=== PATIENT | female | born 2000 | race Caucasian/White ===

== ENCOUNTER 2024-03-05 01:22 | Inpatient (IN) | payer MEDICAID, SELFPAY ==
[2024-03-05] VITALS (11 sets, daily range): BP systolic 115–146; BP diastolic 81–99; PULSE 88–118; RESP 16–19; TEMP 36.5–36.7; O2SAT 97–100; BMI 22.8
--- NOTE | 2024-03-05 01:27 | EKG_ITS ---
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
--- NOTE | 2024-03-05 01:27 | PD.EDRME ---
Rapid Medical Screening Exam RME Arrival date/time: 03/05/24 01:22 23 year old female present to ED for c/o chest pain. I have greeted and performed a focused initial assessment of this patient. A comprehensive ED assessment and evaluation of the patient, analysis of all test results, and completion of the medical decision making process will be conducted by additional ED providers. Chief Complaint: Chest Pain Time Seen by Provider: 03/05/24 01:27
[2024-03-05] MEDS: ONDANSETRON ODT 4 MG TABRAP PO (02:14)
[2024-03-05 02:55] LABS: Basophils # (Auto) 0.1 Thou/mm3 (0.0-0.2); Basophils % (Auto) 1 % (0-2.5); Eosinophils # (Auto) 0.1 Thou/mm3 (0.0-0.5); Eosinophils % (Auto) 2 % (0-10); Hematocrit 43.8 % (36.0-46.0); Hemoglobin 14.8 g/dL (12.0-16.0); Immature Granulocytes % (Auto) 1 % (0-0); Immature Granulocytes Auto 0.04 Thou/mm3 (0.00-0.00); Lymphocytes # (Auto) 0.5 Thou/mm3 (1.0-4.8); Lymphocytes % (Auto) 9 % (10-50); Mean Corpuscular HGB Conc 33.8 g/dl (31.0-37.0); Mean Corpuscular Hemoglobin 36.3 pg (25.0-35.0); Mean Corpuscular Volume 107 fL (80-100); Monocytes # (Auto) 0.5 Thou/mm3 (0.0-0.8); Monocytes % (Auto) 8 % (0-12); Neutrophils # (Auto) 4.2 Thou/mm3 (1.8-7.7); Neutrophils % (Auto) 79 % (37-80); Nucleated Red Blood Cell % 0 /100 WBC (0); Platelet Count 272 Thou/mm3 (140-440); RDW Standard Deviation 51.7 fL (36.4-46.3); Red Blood Count 4.08 Miln/mm3 (4.00-5.20); White Blood Count 5.3 Thou/mm3 (3.6-11.0)
[2024-03-05 03:10] LABS: HCG,Qualitative Serum Negative
[2024-03-05 03:33] LABS: Alanine Aminotransferase 112 U/L (10-49); Albumin, Serum 4.2 gm/dL (3.5-5.0); Albumin/Globulin Ratio 1.3 (1.2-2.2); Alkaline Phosphatase 177 U/L (46-116); Anion Gap 11 (7-16); Aspartate Amino Transferase 316 U/L (0-34); BUN/Creatinine Ratio 12 Ratio (12-20); Bilirubin,Total 2.1 mg/dL (0.3-1.2); Blood Urea Nitrogen 7 mg/dL (9-23); Calcium 9.3 mg/dL (8.3-10.6); Calcium (Corrected) 9.3 mg/dL (8.5-10.1); Chloride 105 mMol/L (98-107); Creatinine (Component) 0.6 mg/dL (0.6-1.3); Estimated Creatinine Clearance 147.1 mL/min (>60); Globulin 3.3 gm/dL (2.3-3.5); Glucose 130 mg/dL (74-106); Lipase 2433 U/L (12-53); Magnesium 1.7 mg/dL (1.6-2.6); Osmolality,Calculated 281 (275-295); Potassium 4.1 mMol/L (3.4-5.1); Sodium 141 mMol/L (136-145); Total Protein 7.5 gm/dL (5.7-8.2); Troponin I < 0.002 ng/mL (0.0-0.045); eGFR > 60 See Note
--- NOTE | 2024-03-05 03:42 | XR_ITS ---
Examination: CT abdomen with intravenous contrast CT pelvis with intravenous contrast 2-D coronal reconstructions 2-D sagittal reconstructions Date and time of exam:March 05, 2024 1006 hours Comparison July 19, 2021 INDICATIONS: Epigastric pain nausea vomiting bilateral flank pain beginning 2 days ago, elevated lipase on laboratory examination today. CTDI: vol (mGy) 6.77 DLP: (mGycm) 396 Technique: Multiple axial sections of the abdomen and pelvis have been obtained. 64 slice high-resolution scanner used. 3 mm axial sections have been obtained, post intravenous injection 60 cc Isovue-370 2-D sagittal, coronal reconstructions obtained. Low dose protocols were performed. One or more of the following dose reduction techniques were used; automated exposure control, adjustment of the mA and/or KV according to patient size, use of iterative reconstruction technique. Findings: Hepatomegaly 16.5 cm with severe diffuse fatty infiltration throughout the liver No definite gallstones Severe pancreatitis, edema surrounding the pancreas free fluid extending into the abdomen No pseudocyst at this time Aorta is not enlarged No renal or ureteral calculi, no hydronephrosis No bowel obstruction Normal appendix No diverticulitis Anteverted uterus No pelvic mass Bladder intact Osseous structures intact IMPRESSION: Severe acute pancreatitis
[2024-03-05 04:15] LABS: Alcohol, Blood Medical 113.1 mg/dL (0-10.0)
[2024-03-05 05:08] LABS: Cardiac Risk Estimate 1.8 RATIO (3.7-5.6); Cholesterol 197 mg/dL (132-200); HDL Cholesterol 111 mg/dL (40-60); LDL Cholesterol,Calculated 68 mg/dL (0-130); Triglycerides 91 mg/dL (30-150)
--- NOTE | 2024-03-05 06:39 | XR_ITS ---
Examination: Abdomen sonogram, Limited Date and time of exam: March 05, 2024 0803 hours INDICATIONS: Right upper abdominal pain epigastric pain chest pain beginning this morning Technique: Real-time mars scale transabdominal sonographic images of the upper abdomen obtained. Findings: Normal gallbladder Normal common bile duct 0.4 cm Pancreatic head 3.2 cm, pancreatic duct 2.5 mm no stones Liver 16 cm fatty infiltration no focal liver lesions Normal hepatopedal portal venous flow Patent IVC IMPRESSION: Normal gallbladder Normal common bile duct Fatty liver
[2024-03-05] MEDS: SODIUM CHLORIDE 0.9% 1000 ML 1,000 ML 999 ML IV ×2 (10:02→11:42)
[2024-03-05] MEDS: MORPHINE SULF INJ 10 MG/ML VIAL 5 MG IVP (10:03)
[2024-03-05] MEDS: ONDANSETRON INJ 2 MG/ML INJ 2 ML 4 MG IV (10:03)
--- NOTE | 2024-03-05 10:06 | EDNOTE_ITS ---
ED Abdominal Pain RME/HPI General Chief Complaint: Chest Pain Stated complaint: chest, back pain, vomitting, sob Time seen by provider: 03/05/24 01:27 Arrival date/time: 03/05/24 01:22 RME / HPI RME / HPI narrative: 03/05/24 01:22 23 year old female present to ED for c/o chest pain. I have greeted and performed a focused initial assessment of this patient. A comprehensive ED assessment and evaluation of the patient, analysis of all test results, and completion of the medical decision making process will be conducted by additional ED providers. DR. KELLY MAIN ED EVALUATION: 23 year old female with no past medical history presents to the Emergency Department with complaint of epigastric abdominal pain onset yesterday. Pain is described as aching, burning, and rated mild to moderate in severity. She states she does drink alcohol frequently and smokes marijuana. Related Data Previous Rx's ?Medication ?Instructions ?Recorded ciprofloxacin HCl 500 mg tablet 500 mg PO BID #14 tabs 07/19/21 (Cipro) Allergies Allergy/AdvReac Type Severity Reaction Status Date / Time No Known Allergies Allergy Verified 07/19/21 09:26 Review of Systems Review of Systems Systems Reviewed: All systems reviewed, normal except as documented Narrative Review of Systems: GEN: No fever, no chills, no weight loss EYES: No discharge, no visual changes, no pain HEENT: No ear pain, no congestion, no sore throat PULM: No shortness of breath, no cough, no congestion CV: No chest pain, no dyspnea on exertion, no palpitations GI: No nausea, no vomiting, no diarrhea, + epigastric abdominal pain, no constipation : No frequency, no urgency and no dysuria MUSC/SKEL: No joint pain, no back pain SKIN: No rash PSYCH: No hallucinations, no depression HEME/LYMPH: No easy bleeding or bruising tendencies NEURO: No weakness, no headache Past Medical History Past Medical History GENITOURINARY: Positive Genitourinary Disorders (Frequent UTIs) Family History FAMILY HISTORY: Positive Family Cancer (mom and uncle have cancer) Social History SMOKING STATUS: Never smoker SUBSTANCE USE: marijuana ALCOHOL: Current ED Exam Narrative Physical exam: GENERAL APPEARANCE: alert and oriented x 4, well-developed, well-nourished, no acute distress VITALS: All vitals were reviewed and the pulse ox is 97% on room air, which is normal according to my interpretation. HEENT: Normocephalic, atraumatic; pupils equal, round, reactive to light; EOMI; mucous membranes pink, moist; oropharynx clear NECK: Supple LUNGS: CTABL; no wheezes, no rales, no rhonchi HEART: Regular rate, regular rhythm; normal S1, S2; no murmurs ABDOMEN: there is mild tenderness over the epigastrium on palpation; otherwise non distended; normal BS; no rebound; no masses, no organomegaly, no hernia BACK: no CVA tenderness EXTREMITIES: atraumatic; no edema NEUROLOGIC: awake; alert and oriented x4; cranial nerves II-XII grossly intact; no focal sensory or motor deficits PSYCHIATRIC: appropriate mood and affect SKIN: warm, dry, normal color; no rashes Course Quality Measures none Orders Category Date Time Status COVID-19 Screening Questionnaire NOW Care 03/05/24 09:[address] Screening NOW Care 03/05/24 03:42 Active Veterinary Livestock Inspector NOW Care 03/05/24 09:49 Active Decision to Admit X1 Care 03/05/24 09:49 Active EKG (ED ONLY) *Do not use* NOW Care 03/05/24 01:27 Completed IV [Insert IV] STAT Care 03/05/24 01:[address] abdomen pelvis w con Stat Exams 03/05/24 03:42 Completed EKG (ED Only) Stat Exams 03/05/24 01:27 Draft US abdomen limited Stat Exams 03/05/24 06:39 Completed Alcohol, Blood Medical Stat Lab 03/05/24 02:12 Completed CBC Stat Lab 03/05/24 02:12 Completed CMP [Comprehensive Metabolic Panel] Stat Lab 03/05/24 02:12 Completed Drug Screen,Urine Stat Lab 03/05/24 03:42 Ordered HCG,Qualitative Serum Stat Lab 03/05/24 02:12 Completed Lipase Stat Lab 03/05/24 02:12 Completed Lipid Panel Stat Lab 03/05/24 02:12 Completed Magnesium Stat Lab 03/05/24 02:12 Completed Troponin I Stat Lab 03/05/24 02:12 Completed Morphine Inj Med 03/05/24 09:40 Discontinued 5 mg IVP X1 ONE Ondansetron Inj [Zofran Inj] Med 03/05/24 09:40 Discontinued 4 mg IV X1 ONE Ondansetron Odt [Zofran Odt] Med 03/05/24 01:58 Discontinued 4 mg PO X1 ONE Ondansetron Odt [Zofran Odt] Med 03/05/24 01:58 Discontinued 4 mg PO X1 ONE Sodium Chloride 0.9% 1000 ml [Ns] 1,000 ml Med 03/05/24 01:58 Discontinued IV 999 mls/hr Sodium Chloride 0.9% 1000 ml [Ns] 1,000 ml Med 03/05/24 09:40 Discontinued IV 999 mls/hr Vital Signs Vital signs: Vital Signs Temperature 97.7 F 03/05/24 01:41 Pulse Rate 107 H 03/05/24 01:41 Respiratory Rate 16 03/05/24 01:41 Blood Pressure 115/84 03/05/24 01:41 Pulse Oximetry (%) 100 03/05/24 01:41 Oxygen Delivery Method Room Air 03/05/24 01:41 Abdominal Pain MDM MDM Narrative MDM Narrative:: I, Felecia Mccurdy am scribing for and in the presence of Dr. Kelly. Patient data External records reviewed:: [facility] previous records (Reviewed last ED visit dated 07/19/21, discharged with the following: Pyelonephritis.) Clinical information provided by:: patient Social determinants that could affect healthcare access:: substance use (drinks alcohol frequently and smokes marijuana) Patient has the following chronic illnesses:: Denies any PMHx, surgeries, daily medications, or known allergies. How is presenting disease/condition affected by chronic disease/condition?: no chronic disease Evaluation data The following diagnostics were reviewed and interpreted by me:: lab results, radiology exam(s) and EKG tracing(s) (sinus rhythm, rate 92, no STEMI) Lab and/or radiology exams considered but not ordered:: none Interpretation Summary: Procedure(s): US abdomen limited Accession Number(s): [id number] cc: Adolfo Claire MD; Antony Vela MD; Shalini Kelly MD~ Examination: Abdomen sonogram, Limited Date and time of exam: March 05, 2024 0803 hours INDICATIONS: Right upper abdominal pain epigastric pain chest pain beginning this morning Technique: Real-time mars scale transabdominal sonographic images of the upper abdomen obtained. Findings: Normal gallbladder Normal common bile duct 0.4 cm Pancreatic head 3.2 cm, pancreatic duct 2.5 mm no stones Liver 16 cm fatty infiltration no focal liver lesions Normal hepatopedal portal venous flow Patent IVC IMPRESSION: Normal gallbladder Normal common bile duct Fatty liver Dictated By: Antony Vela MD Procedure(s): CT abdomen pelvis w con Accession Number(s): [id number] cc: Adolfo Claire MD; Antony Vela MD; Kp Ordonez PA-C~ Examination: CT abdomen with intravenous contrast CT pelvis with intravenous contrast 2-D coronal reconstructions 2-D sagittal reconstructions Date and time of exam:March 05, 2024 1006 hours Comparison July 19, 2021 INDICATIONS: Epigastric pain nausea vomiting bilateral flank pain beginning 2 days ago, elevated lipase on laboratory examination today. CTDI: vol (mGy) 6.77 DLP: (mGycm) 396 Technique: Multiple axial sections of the abdomen and pelvis have been obtained. 64 slice high-resolution scanner used. 3 mm axial sections have been obtained, post intravenous injection 60 cc Isovue-370 2-D sagittal, coronal reconstructions obtained. Low dose protocols were performed. One or more of the following dose reduction techniques were used; automated exposure control, adjustment of the mA and/or KV according to patient size, use of iterative reconstruction technique. Findings: Hepatomegaly 16.5 cm with severe diffuse fatty infiltration throughout the liver No definite gallstones Severe pancreatitis, edema surrounding the pancreas free fluid extending into the abdomen No pseudocyst at this time Aorta is not enlarged No renal or ureteral calculi, no hydronephrosis No bowel obstruction Normal appendix No diverticulitis Anteverted uterus No pelvic mass Bladder intact Osseous structures intact IMPRESSION: Severe acute pancreatitis Dictated By: Antony Vela MD Medications / Prescriptions Medications or Prescriptions considered but not ordered:: none Medication administrations:: Medication Administration History Sodium Chloride (Ns) 1,000 mls @ 200 mls/hr IV .Q5H LINDSAY Stop: 04/04/24 10:23 Magnesium Sulfate (Magnesium Sulfate Ivpb) 4 gm in 50 mls @ 12.5 mls/hr IV X1 ONE Stop: 03/05/24 14:24 Last Admin: 03/05/24 11:38 Dose: 12.5 mls/hr Documented By: DO Lorazepam (Lorazepam 2 Mg/Ml Vial) 0.5 mg IVP Q4H PRN PRN Reason: CIWA SCORE(2-6) Stop: 03/10/24 10:22 Lorazepam (Lorazepam 2 Mg/Ml Vial) 1 mg IVP Q4H PRN PRN Reason: CIWA SCORE (7-11) Stop: 03/10/24 10:22 Lorazepam (Lorazepam 2 Mg/Ml Vial) 2 mg IVP Q4H PRN PRN Reason: CIWA SCORE (12-16) Stop: 03/10/24 10:22 Discontinued Medications Folic Acid (Folic Acid Inj 1 Mg/0.2 Ml) 1 mg IVP X1 ONE Stop: 03/05/24 10:26 Last Admin: 03/05/24 11:36 Dose: 1 mg Documented By: DO Sodium Chloride (Ns) 1,000 mls @ 999 mls/hr IV .Q1H1M ONE Stop: 03/05/24 02:58 Last Admin: 03/05/24 10:02 Dose: 999 mls/hr Documented By: DO Sodium Chloride (Ns) 1,000 mls @ 999 mls/hr IV .Q1H1M ONE Stop: 03/05/24 10:40 Last Admin: 03/05/24 11:42 Dose: 999 mls/hr Documented By: DO Morphine Sulfate (Morphine Sulf Inj 10 Mg/Ml Vial) 5 mg IVP X1 ONE Stop: 03/05/24 09:41 Last Admin: 03/05/24 10:03 Dose: 5 mg Documented By: DO Ondansetron HCl (Ondansetron Odt 4 Mg Tabrap) 4 mg PO X1 ONE; Protocol Stop: 03/05/24 01:59 Last Admin: 03/05/24 02:10 Dose: Not Given Documented By: NIKITA Non-Admin Reason: Discontinued Ondansetron HCl (Ondansetron Odt 4 Mg Tabrap) 4 mg PO X1 ONE; Protocol Stop: 03/05/24 01:59 Last Admin: 03/05/24 02:14 Dose: 4 mg Documented By: NIKITA Ondansetron HCl (Ondansetron Inj 2 Mg/Ml Inj 2 Ml) 4 mg IV X1 ONE Stop: 03/05/24 09:41 Last Admin: 03/05/24 10:03 Dose: 4 mg Documented By: Thiamine HCl (Thiamine Inj 100 Mg/Ml Vial 2 Ml) 100 mg IVP X1 ONE Stop: 03/05/24 10:26 Last Admin: 03/05/24 11:37 Dose: 100 mg Documented By: DO see above Consultations Consultation(s) initiated? (list below): Yes Consultation #1 (Physician, Specialty, Details): Discussed test HPI, PMHx, lab, radiology results and/or management with hospitalist. Will admit for further evaluation and management. Accepts patient for admission. Time: 11:30 Diagnosis Differential diagnosis abdominal pain: abdominal pain, pancreatitis and other (GERD, cannabinoid hyperemesis syndrome) Most likely diagnosis given after review of the tests above:: As noted below. Admission Indicated Admission indicated?: indicated Admission Request Was there a request for admission?: Yes Admission Attestation Admission request attestation: Discussed case with [] from Hospitalist service regarding admission. Discussed patients ED course, exam findings, labs, and radiology results. The Hospitalist [agrees,declines] to accept the patient for admission. Disposition Plan Disposition Plan: Admit
[2024-03-05] MEDS: FOLIC ACID INJ 1 MG/0.2 ML IVP (11:36)
[2024-03-05] MEDS: THIAMINE INJ 100 MG/ML VIAL 2 ML IVP (11:37)
[2024-03-05] MEDS: Magnesium Sulfate 4 GM Ivpb 4 GM/50 ML BAG IV (11:38)
--- NOTE | 2024-03-05 12:33 | ESHP_ITS ---
<Statement entered by Mirza Lopez MD - 03/05/24 16:06> This patient is a 23-year-old female with past medical history of alcohol use disorder presented to the ED with abdominal pain was found to have severe acute pancreatitis with elevated blood alcohol level. No pseudocyst. CT abdomen was consistent with acute pancreatitis. Lipase was elevated in the s. Ochoa score 0. Patient is started on IV fluid resuscitation with normal saline at 200 cc/h CIWA protocol as needed for alcohol withdrawal. guest services director were offered. Pain management is optimized as needed. Patient is currently not taking any home medications. Will likely start clear liquid diet if patient is able to tolerate well. All labs and orders were reviewed. I saw and examined the patient, and I agree with current management stated by Dr Davonte MD,PGY1. Plan of care was discussed with the attending physician and resident physician. Disclaimer: Despite multiple revisions, due to the dictation software being used, the document bellow may not be free of grammatical errors including phonetic/typographic errors. However, this does not deter from our commitment to providing health care in the patient's best interest in mind. Dr. Hernandez MD, PGY 2 Documentation for date of: 03/05/24 HPI History of Present Illness History of present illness: Estrella Cabrera is a 23 F with no significant PMH who presented to the emergency department for several bouts of nausea/vomiting as well as abdominal pain. Father is with patient at bedside. Patient states that yesterday night at around 11 PM she began having significant abdominal pain, nausea and vomiting. Patient states that the abdominal pain appears to be in the middle of her belly, and is also at her back. Patient had several bouts of nausea and vomiting with food content, no noticed red streaks or dark red emesis. Patient states that she had similar symptoms with a similar pain in lower intensity 2 weeks ago, but it spontaneously resolved. With father at bedside, patient does state that she drinks 1 pint of vodka per day for the last year/year and a half. Last drink was 8 PM on 03/04. Patient denies any recent fever, chest pain, chest pressure, changes in vision hearing, sensorineural changes, changes in urinary symptoms or bowel movements. On presentation in the emergency department, blood pressure was 115/84, pulse 107, respirations 16, afebrile at 97.7, saturating 100% on room air. CBC relatively normal, MCV elevated at 107. Electrolytes relatively normal, with glucose elevated 130. AST elevated 316, ALT elevated at 112. Alk Phos 177. Troponin negative. Lipase significantly elevated at 2433. In the emergency department patient was given. Morphine for pain, Zofran for nausea. Abdominal ultrasound shows normal gallbladder, normal CBD. Fatty liver. CT of abdomen pelvis shows hepatomegaly with 16.5 cm with severe diffuse fatty infiltration throughout liver. Severe pancreatitis present with edema surrounding the pancreas free fluid extending into the abdomen. No pseudocysts. On physical exam patient appears to be a chronically sick female. Patient is alert and oriented x 4. Cranial nerves II to XII intact, no sensorineural changes noted on exam. Abdomen is soft, mildly distended, tender to mild palpation. No fluid shift noted. No peritoneal signs present. Patient will be admitted for management of acute pancreatitis likely secondary to alcohol use. PMH: none PSH: none Meds: none Allergies: none Social: Drugs: none Alcohol: see above Smoking: none Exam Vital Signs Temp Pulse Resp BP Pulse Ox O2 Del Method 98.0 F 94 18 129/86 H 100 Room Air 03/05/24 10:58 03/05/24 12:18 03/05/24 12:18 03/05/24 12:18 03/05/24 12:18 03/05/24 12:18 Narrative Exam GENERAL: Patient appears to be moderate, responsive/cooperative. 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 Eyes open, symmetrical, & clear CARDIO: No chest pain on palpation. Heart RRR, no obvious murmurs PULM: No noted coughing/dyspnea. Lungs CTA B/L, no R/W/R GI: Abdomen is soft, mildly distended, tender to mild palpation. No fluid shift noted. No peritoneal signs present. 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 SKIN/MSK/EXT: No wounds/rashes/edema/amputations, no pain on palpation. Pedal pulses present B/L Results: Labs 03/06/24 05:22 03/06/24 05:22 Labs: Short CBC 03/05/24 Range/Units 02:12 WBC 5.3 (3.6-11.0) Thou/mm3 Hgb 14.8 (12.0-16.0) g/dL Hct 43.8 (36.0-46.0) % Plt Count 272 (140-440) Thou/mm3 BMP 03/05/24 02:12 Sodium 141 Potassium 4.1 Chloride 105 Carbon Dioxide 25.0 BUN 7 L Creatinine 0.6 Glucose 130 H Calcium 9.3 Cardiac Enzymes 03/05/24 Range/Units 02:12 Troponin I < 0.002 (0.0-0.045) ng/mL Liver Function 03/05/24 Range/Units 02:12 Total Bilirubin 2.1 H (0.3-1.2) mg/dL AST 316 H (0-34) U/L ALT 112 H (10-49) U/L Alkaline Phosphatase 177 H (46-116) U/L Albumin 4.2 (3.5-5.0) gm/dL Quality Measures Quality Measures none Medications Home Medications and Allergies Allergies Allergy/AdvReac Type Severity Reaction Status Date / Time No Known Allergies Allergy Verified 07/19/21 09:26 Visit Medications Sodium Chloride (Ns) 1,000 mls @ 200 mls/hr IV .Q5H LINDSAY Stop: 04/04/24 10:23 Magnesium Sulfate (Magnesium Sulfate Ivpb) 4 gm in 50 mls @ 12.5 mls/hr IV X1 ONE Stop: 03/05/24 14:24 Last Admin: 03/05/24 11:38 Dose: 12.5 mls/hr Ibuprofen (Ibuprofen Tab 600 Mg Tablet) 600 mg PO Q6HR PRN PRN Reason: PAIN OR FEVER > 101 Stop: 04/04/24 12:29 Lorazepam (Lorazepam 2 Mg/Ml Vial) 0.5 mg IVP Q4H PRN PRN Reason: CIWA SCORE(2-6) Stop: 03/10/24 10:22 Lorazepam (Lorazepam 2 Mg/Ml Vial) 1 mg IVP Q4H PRN PRN Reason: CIWA SCORE (7-11) Stop: 03/10/24 10:22 Lorazepam (Lorazepam 2 Mg/Ml Vial) 2 mg IVP Q4H PRN PRN Reason: CIWA SCORE (12-16) Stop: 03/10/24 10:22 Discontinued Medications Folic Acid (Folic Acid Inj 1 Mg/0.2 Ml) 1 mg IVP X1 ONE Stop: 03/05/24 10:26 Last Admin: 03/05/24 11:36 Dose: 1 mg Sodium Chloride (Ns) 1,000 mls @ 999 mls/hr IV .Q1H1M ONE Stop: 03/05/24 02:58 Last Admin: 03/05/24 10:02 Dose: 999 mls/hr Sodium Chloride (Ns) 1,000 mls @ 999 mls/hr IV .Q1H1M ONE Stop: 03/05/24 10:40 Last Admin: 03/05/24 11:42 Dose: 999 mls/hr Morphine Sulfate (Morphine Sulf Inj 10 Mg/Ml Vial) 5 mg IVP X1 ONE Stop: 03/05/24 09:41 Last Admin: 03/05/24 10:03 Dose: 5 mg Ondansetron HCl (Ondansetron Odt 4 Mg Tabrap) 4 mg PO X1 ONE; Protocol Stop: 03/05/24 01:59 Last Admin: 03/05/24 02:10 Dose: Not Given Ondansetron HCl (Ondansetron Odt 4 Mg Tabrap) 4 mg PO X1 ONE; Protocol Stop: 03/05/24 01:59 Last Admin: 03/05/24 02:14 Dose: 4 mg Ondansetron HCl (Ondansetron Inj 2 Mg/Ml Inj 2 Ml) 4 mg IV X1 ONE Stop: 03/05/24 09:41 Last Admin: 03/05/24 10:03 Dose: 4 mg Thiamine HCl (Thiamine Inj 100 Mg/Ml Vial 2 Ml) 100 mg IVP X1 ONE Stop: 03/05/24 10:26 Last Admin: 03/05/24 11:37 Dose: 100 mg Assessment & Plan Assessment Estrella Cabrera is a 23-year-old female with no past medical history who presents for nausea/vomiting, abdominal pain. Patient admitted for treatment of acute pancreatitis. # Acute pancreatitis secondary to alcohol use Patient has a history of chronic alcohol use, 1 pint of vodka for the last 1.5 years. Patient has had several bouts of nausea vomiting, abdominal pain prior to admission. AST 316, ALT 112. Lipase 2433. CT abdomen pelvis shows severe pancreatitis present with edema surrounding the pancreas and free fluid extending into the abdomen. No pseudocyst noted [place]'s Criteria: 0 = 1% predicted mortality - NaCl 0.9% at 200 mL/h - Acetaminophen, [place], Toradol for pain. - Zofran for nausea - We will continue to monitor labs, symptoms #Alcohol Abuse Patient attests to drinking 1 pint of vodka every day for the last 1.5 years AST 316, ALT 112 - [facility] protocol in place - Folic acid 1 mg daily - Thiamine 100 mg daily - Will continue to reassess, monitor labs -Contacting resources for cessation resources upon discharge #Hx of MDD (?) Per patient's medication record it appears the patient takes escitalopram at home. Last prescription refill the 09/29/23 Patient denies taking any medication at home # Elevated transaminases with elevated T. bili T. bili 2.1, AST 316, ALT 112 -Likely related to alcohol intake -Ultrasound liver was negative for stones in the gallbladder or CBD dilation -Continue [facility] protocol -Counseled on alcohol abstinence -Trend LFTs and avoiding hepatotoxic agents Diet: Sips of water, will advance diet to full liquid diet if patient tolerates GI: Pantoprazole DVT: SCDs, JC score 0 no chemoprophylaxis needed Reed: None Lines: Peripheral Dispo: Med-Tele Med Rec: Pending Code: Full Hospitalization for work-up, & management of acute pancreatitis secondary to alcohol use. Patient was seen, plan was discussed with attending Dr. Vicky Miller DO, PGY-1 Anesthesiology Attending Provider Attestation/Addendum I attest that I was physically present for the evaluation, physical examination, lab and imaging review of the patient with the residents. I discussed the case with the residents and agree with the findings and plans of care as documented above. Patient is a 23 years old female with alcohol abuse who presented to the ED with complaint of nausea/vomiting and abdominal pain. The pain is mostly present on upper abdomen and back. Father at bedside states that patient drinks 1 pint of vodka every day for the last year and a half. In the ED, she was found to have elevated liver enzymes, lipase was significantly elevated at 2433, CT abdomen/pelvis showed severe acute pancreatitis along with hepatomegaly with fatty infiltration. Calcium levels are noted to be within normal limits. Abdominal ultrasound did not show any gallstones. Decision made to admit the patient for management of acute pancreatitis, secondary to alcohol abuse and alcohol use disorder. Started patient on aggressive IV hydration, analgesics, antiemetics, CIWA protocol with thiamine and multivitamin supplement. Melissa Perry MD
[2024-03-05] MEDS: LORazepam 2 MG/ML VIAL 1 MG IVP ×3 (13:44→22:23)
--- NOTE | 2024-03-05 15:55 | PC.NURSE ---
pt asleep on gurni at this time. no distress noted. sister at bedside
--- NOTE | 2024-03-05 16:15 | PC.NURSE ---
report given to Maya on med/tele floor. pt to go to room [id number]
[2024-03-05 17:24] LABS: Amphetamine/Methamp Scrn,U Negative (Negative); Barbiturate Screen,Urine Negative (Negative); Benzodiazepines Screen,Urine Negative (Negative); Benzoylecgonine Screen, Ur Negative (Negative); Fentanyl Screen,Urine Negative (Negative); Opiate Screen,Urine Positive (Negative); THC Screen,Urine Negative (Negative)
[2024-03-05] MEDS: SODIUM CHLORIDE 0.9% 1000 ML 1,000 ML 200 ML IV ×2 (17:59→23:34)
--- NOTE | 2024-03-05 23:51 | PC.NURSE ---
MD Norbert Escoto made aware the HR went up to 170''s when pt got up to the toilet to void, at this time it's now on 128 Sinus Tachycardia, no new order made at this time, will continue to monitor.
[2024-03-06] VITALS (9 sets, daily range): BP systolic 125–138; BP diastolic 78–102; PULSE 115–168; RESP 15–20; TEMP 36.1–37.1; O2SAT 95–98; BMI 22.7
--- NOTE | 2024-03-06 00:01 | PC.NURSE ---
MD Toussaint called me back saying he did order EKG, RT Antonio made aware. EKG done shows Sinus tachycardia 118, MD Toussaint made aware. Pt CIWA score of 8 at this time, ordered Ativan IVP 1mg x1, will administer meds per ordered.
[2024-03-06] MEDS: KETOROLAC INJ 30 MG/ML VIAL IVP ×2 (00:08→21:04)
[2024-03-06] MEDS: LORazepam 2 MG/ML VIAL 1 MG IVP ×2 (00:25→04:53)
[2024-03-06] MEDS: SODIUM CHLORIDE 0.9% 1000 ML 1,000 ML 200 ML IV ×3 (04:53→23:50)
[2024-03-06 05:37] LABS: Basophils % (Auto) 0 % (0-2.5); Eosinophils # (Auto) 0.1 Thou/mm3 (0.0-0.5); Eosinophils % (Auto) 1 % (0-10); Hematocrit 39.9 % (36.0-46.0); Hemoglobin 13.2 g/dL (12.0-16.0); Immature Granulocytes % (Auto) 0 % (0-0); Immature Granulocytes Auto 0.03 Thou/mm3 (0.00-0.00); Lymphocytes # (Auto) 0.3 Thou/mm3 (1.0-4.8); Lymphocytes % (Auto) 4 % (10-50); Mean Corpuscular HGB Conc 33.1 g/dl (31.0-37.0); Mean Corpuscular Hemoglobin 35.9 pg (25.0-35.0); Mean Corpuscular Volume 108 fL (80-100); Monocytes # (Auto) 0.5 Thou/mm3 (0.0-0.8); Monocytes % (Auto) 6 % (0-12); Neutrophils # (Auto) 6.5 Thou/mm3 (1.8-7.7); Neutrophils % (Auto) 89 % (37-80); Nucleated Red Blood Cell % 0 /100 WBC (0); Platelet Count 120 Thou/mm3 (140-440); RDW Standard Deviation 52.5 fL (36.4-46.3); Red Blood Count 3.68 Miln/mm3 (4.00-5.20); White Blood Count 7.4 Thou/mm3 (3.6-11.0)
[2024-03-06 05:52] LABS: Glucose Estimated Average 82 mg/dL (80-131); Hemoglobin A1C 4.5 % Hgb (4.8-6.0)
[2024-03-06 06:32] LABS: Alanine Aminotransferase 54 U/L (10-49); Albumin, Serum 3.1 gm/dL (3.5-5.0); Albumin/Globulin Ratio 1.3 (1.2-2.2); Alkaline Phosphatase 125 U/L (46-116); Anion Gap 8 (7-16); Aspartate Amino Transferase 126 U/L (0-34); BUN/Creatinine Ratio 14 Ratio (12-20); Bilirubin,Total 2.2 mg/dL (0.3-1.2); Blood Urea Nitrogen 7 mg/dL (9-23); Calcium 7.9 mg/dL (8.3-10.6); Calcium (Corrected) 8.6 mg/dL (8.5-10.1); Carbon Dioxide 23.5 mMol/L (20.0-31.0); Chloride 104 mMol/L (98-107); Creatinine (Component) 0.5 mg/dL (0.6-1.3); Estimated Creatinine Clearance 176.5 mL/min (>60); Globulin 2.4 gm/dL (2.3-3.5); Glucose 83 mg/dL (74-106); Lipase 1561 U/L (12-53); Magnesium 1.9 mg/dL (1.6-2.6); Osmolality,Calculated 267 (275-295); Phosphorous 2.5 mg/dL (2.4-5.1); Potassium 5.2 mMol/L (3.4-5.1); Sodium 135 mMol/L (136-145); Total Protein 5.5 gm/dL (5.7-8.2); eGFR > 60 See Note
[2024-03-06] MEDS: LORazepam 0.5 MG TABLET 1 MG PO ×5 (08:40→20:26)
[2024-03-06] MEDS: FOLIC ACID 1 MG TABLET PO (08:40)
[2024-03-06] MEDS: THIAMINE 100 MG TABLET PO (08:40)
[2024-03-06] MEDS: SODIUM CHLORIDE 0.9% 1000 ML 1,000 ML 100 ML IV (10:45)
--- NOTE | 2024-03-06 11:00 | EKG_ITS ---
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
[2024-03-06] MEDS: Magnesium Sulfate 2 GM Ivpb 2 GM/50 ML BAG IV (11:25)
[2024-03-06 12:29] LABS: Collection Type, Urine Clean Catch
[2024-03-06 13:09] LABS: Bacteria,Urine Rare; Bilirubin,Urine 1+ (Negative); Blood,Urine Negative (Negative); Clarity,Urine Turbid (Clear/Hazy); Color,Urine Yellow (Lt Yel-Yel); Glucose, Urine Trace (Negative); Ketones,Urine 1+ (Negative); Leukocyte Esterase,Urine Positive (Negative); Nitrite,Urine Negative (Negative); Protein,Urine Trace (Neg - Trace); RBC,Urine 2 /hpf (0-3); Specific Gravity,Urine 1.023 (1.001-1.035); Squamous Epithelial Cell,Urine 40 /hpf (0-5); Transitional Epi Cells,Urine 1 /hpf (0-5); WBC,Urine 7 /hpf (0-5)
--- NOTE | 2024-03-06 14:00 | ESPR_ITS ---
<Statement entered by Mirza Lopez MD - 03/06/24 15:59> Patient was seen and examined at the bedside. Overnight, patient was tachycardic heart rate in 140s therefore CIWA protocol was adjusted by the night resident team. This morning, patient was seen and examined at the bedside. She reported that she feels better however has some palpitations but did not had a history of sinus tachycardia in the past. She endorsed burning sensation during urination. Rest of the vitals were stable. Labs revealed white count stable and hemoglobin 13. Platelets around 120. Chemistry panel showed potassium 5.2. Kidney functions remained stable. Diet was advanced to soft pur?ed which she tolerated well. Will continue with IV fluid at 200 cc/h given acute severe pancreatitis. Lipase is downtrending. Ordered TSH, T4 for the morning. Urinalysis was positive for UTI therefore ceftriaxone 1 g was started. Will follow-up on the urine cultures. Consider giving metoprolol succinate 25 mg x 1 in case of heart rate above 140s at night. Treating underlying infection and anticipating resolution in the next 24-48 hours. K-Phos and calcium carbonate given x 1 as repeat labs showed phosphorus 1.1 and corrected calcium 8.2. All labs and orders were reviewed. I saw and examined the patient, and I agree with current management stated by Dr Davonte DO,PGY1. Plan of care was discussed with the attending physician and resident physician. Disclaimer: Despite multiple revisions, due to the dictation software being used, the document bellow may not be free of grammatical errors including phonetic/typographic errors. However, this does not deter from our commitment to providing health care in the patient's best interest in mind. Dr. John MD, PGY 2 Documentation for date of: 03/06/24 Subjective Subjective Interval history: 03/06: No acute events overnight. Vital signs notable for tachycardia with heart rates in 120s to 130s. EKG shows sinus tachycardia BP stable at 130/90, respiratory rate 20, afebrile. CBC normal. CMP notable for potassium of 5.2. AST this a.m. 126 from 316, ALT 54 from 112. Patient states that she subjectively feels better, slightly gets lightheaded and feels palpitations walking to the restroom. But overall better. CIWA score of 8 in this a.m. Tolerated clear liquids, proceeding with pur?ed for lunch. Fluid balance +4 L, however unmeasured voids not accounted for. Patient does attest to several days of burning urination, has a history of recurrent UTIs. Urinalysis shows WBC 7, nitrite negative, leukoesterase positive. Treating with Rocephin 1 g daily. Will continue to follow throughout the day. Exam Vital Signs Temp Pulse Resp BP Pulse Ox O2 Del Method 97.3 F 120 H 15 125/98 H 97 Room Air 03/06/24 12:00 03/06/24 12:00 03/06/24 12:03/06/24 12:03/06/24 12:03/06/24 12:00 Narrative Exam GENERAL: Patient appears to be moderate, responsive/cooperative. 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 Eyes open, symmetrical, & clear CARDIO: No chest pain on palpation. Heart RRR, no obvious murmurs PULM: No noted coughing/dyspnea. Lungs CTA B/L, no R/W/R GI: Abdomen is soft, mildly distended, tender to mild palpation. No fluid shift noted. No peritoneal signs present. Bowel sounds present x 4 URO/HAND BOOKBINDER:: No further abnormalities noted. SKIN/MSK/EXT: No wounds/rashes/edema/amputations, no pain on palpation. Pedal pulses present B/L Objective Labs 03/06/24 05:22 03/06/24 13:46 Labs: Laboratory Results - last 24 hr 03/05/24 03/06/24 03/06/24 16:38 05:22 11:00 WBC 7.4 RBC 3.68 L Hgb 13.2 Hct 39.9 MCV 108 H MCH 35.9 H MCHC 33.1 RDW Std Deviation 52.5 H Plt Count 120 L D Neut % (Auto) 89 H Lymph % (Auto) 4 L [place] % (Auto) 6 Eos % (Auto) 1 Baso % (Auto) 0 Neut # (Auto) 6.5 Lymph # (Auto) 0.3 L [place] # (Auto) 0.5 Eos # (Auto) 0.1 Baso # (Auto) 0.0 Immature Gran # (Auto) 0.03 H Absolute Nucleated RBC 0.00 Immature Gran % 0 Nucleated RBC % 0 Sodium 135 L Potassium 5.2 H D Chloride 104 Carbon Dioxide 23.5 Anion Gap 8 BUN 7 L Creatinine 0.5 L Estim Creat Clear Calc 176.5 eGFR > 60 BUN/Creatinine Ratio [address] Glu mg/dL 82 Hemoglobin A1c 4.5 L Calculated Osmolality 267 L Calcium 7.9 L Corrected Calcium 8.6 Phosphorus 2.5 Magnesium 1.9 Total Bilirubin 2.2 H AST 126 H ALT 54 H Alkaline Phosphatase 125 H D Total Protein 5.5 L Albumin 3.1 L D Globulin 2.4 Albumin/Globulin Ratio 1.3 Lipase 1561 H* D Ur Collection Type Clean Catch Urine Color Yellow Urine Clarity Turbid A Urine pH 6.0 Ur Specific [place] 1.023 Urine Protein Trace Urine Glucose (UA) Trace Urine Ketones 1+ A Urine Blood Negative Urine Nitrite Negative Urine Bilirubin 1+ A Urine Urobilinogen (Auto) 6.0 Ur Leukocyte Esterase Positive Urine RBC 2 Urine WBC 7 H Ur Squamous Epith Cells 40 H Ur Transition Epith Cell 1 Urine Bacteria Rare Urine Opiates Screen Positive A Urine Fentanyl Screen Negative Ur Barbiturates Screen Negative U Amphetamin/Meth Scrn Negative U Benzodiazepines Scrn Negative U Cocaine Metab Screen Negative U Marijuana (THC) Screen Negative Quality Measures Quality Measures none Assessment & Plan Assessment Current Active Medications: Generic Name Dose Route Start Last Admin Trade Name Freq PRN Reason Stop Dose Admin Acetaminophen 650 mg 03/05/24 13:56 Acetaminophen 325 Mg Tablet PO 04/04/24 13:55 Q4HR PRN PAIN SCALE 1-3 (mild Hydrocodone Bitart/Acetaminophen 1 tab 03/05/24 13:56 Hydrocodone/Apap 5/325 Tablet PO 03/10/24 13:55 Q6HR PRN PAIN SCALE 4-6 (Moderate Folic Acid 1 mg 03/06/24 09:00 03/06/24 08:40 Folic Acid 1 Mg Tablet PO 04/05/24 08:59 1 mg QDAY LINDSAY Administration Sodium Chloride 1,000 mls @ 200 mls/hr 03/06/24 11:02 Ns IV 04/05/24 11:01 .Q5H LINDSAY Ketorolac Tromethamine 30 mg 03/05/24 13:56 03/06/24 00:08 Ketorolac Inj 30 Mg/Ml Vial IVP 03/10/24 13:55 30 mg Q6HR PRN Administration Severe Pain 7-10 Lorazepam 0.5 mg 03/06/24 08:00 Lorazepam 0.5 Mg Tablet PO 03/11/24 07:59 Q2HR PRN Ciwa-Ar Score 2-6 Lorazepam 1 mg 03/06/24 08:00 03/06/24 10:46 Lorazepam 0.5 Mg Tablet PO 03/11/24 07:59 1 mg Q2HR PRN Administration Ciwa-Ar score 7-11 Lorazepam 2 mg 03/06/24 07:46 Lorazepam 2 Mg/Ml Vial IV 03/11/24 07:45 Q2HR PRN CIWA SCORE 20-25 Lorazepam 2 mg 03/06/24 08:00 Lorazepam 0.5 Mg Tablet PO 03/11/24 07:59 Q2HR PRN Ciwa-Ar Score 12-15 Lorazepam 1 mg 03/06/24 11:02 Lorazepam 2 Mg/Ml Vial IV 03/11/24 07:45 Q2HR PRN CIWA SCORE 16-19 Thiamine HCl 100 mg 03/06/24 09:00 03/06/24 08:40 Thiamine 100 Mg Tablet PO 04/05/24 08:59 100 mg QDAY LINDSAY Administration Plan Estrella Cabrera is a 23-year-old female with no past medical history who presents for nausea/vomiting, abdominal pain. Patient admitted for treatment of acute pancreatitis. # Acute pancreatitis secondary to alcohol use Patient has a history of chronic alcohol use, 1 pint of vodka for the last 1.5 years. Patient has had several bouts of nausea vomiting, abdominal pain prior to admission. AST 316, ALT 112 on initial presentation Lipase 2433. CT abdomen pelvis shows severe pancreatitis present with edema surrounding the pancreas and free fluid extending into the abdomen. No pseudocyst noted Ochoa's Criteria: 0 = 1% predicted mortality - NaCl 0.9% at 200 mL/h - Acetaminophen, [place], Toradol for pain. - Zofran for nausea - We will continue to monitor labs, symptoms -Replating electrolytes as necessary -K-Phos and calcium carbonate repleted x 1 #Alcohol use disorder Patient attests to drinking 1 pint of vodka every day for the last 1.5 years AST 316, ALT 112 AST and ALT down trended to 126, 54 this a.m. 03/06: DEVANGWA in AM 8 - WA protocol in place - Folic acid 1 mg daily - Thiamine 100 mg daily - Will continue to reassess, monitor labs -Contacting resources for cessation resources upon discharge # Elevated transaminases with elevated T. bili T. bili 2.1, AST 316, ALT 112 AST and ALT down trended to 126, 54 this a.m. -Likely related to alcohol intake -Ultrasound liver was negative for stones in the gallbladder or CBD dilation -Continue [facility] protocol -Counseled on alcohol abstinence -Trend LFTs and avoiding hepatotoxic agents #Urinary Tract Infection Patient has a history of recurrent UTIs Patient attests to multiple days of burning on urination on reexamination today UA shows WBC 7, nitrate negative, leukoesterase positive, rare bacteria. - Treating with Rocephin 1 g daily - Urine cultures ordered, pending #Persistent sinus tachycardia Patient has persistently been tachycardic in 110s-120s since admission. Adequate pain control in place as per patient. -Consider giving metoprolol succinate 25 mg XL 1 time if heart rate remains persistently elevated at night -Treating underlying pancreatitis and UTI - Acetaminophen, [place], Toradol for pain. - TSH, T4 ordered for 1/5 AM, will follow up. #Hx of MDD (?) Per patient's medication record it appears the patient takes escitalopram at home. Last prescription refill the 09/29/23 Patient denies taking any medication at home Diet: Pur?ed diet, will advance to regular diet if tolerated. GI: Pantoprazole DVT: SCDs, JC score 0 no chemoprophylaxis needed Reed: None Lines: Peripheral Dispo: Med-Tele Med Rec: Pending Code: Full Hospitalization for work-up, & management of acute pancreatitis secondary to alcohol use. Patient was seen, plan was discussed with attending Dr. Vicky Miller, , PGY-1 Anesthesiology Attending Provider Attestation/Addendum I attest that I was physically present for the evaluation, physical examination, lab and imaging review of the patient with the residents. I discussed the case with the residents and agree with the findings and plans of care as documented above. At bedside today, patient states she is feeling better. She continues to have abdominal pain but managed with analgesics. She was able to tolerate her diet. Denies any nausea or vomiting. Has been receiving Ativan for alcohol withdrawal. Stated that she had burning micturition for multiple days. We will continue with IV hydration, pur?ed diet, analgesics, electrolyte repletion. UA was obtained which showed rare bacteria, we will start IV Rocephin and urine culture. Patient is also noted to have elevated heart rate going up to 140s, EKG showed sinus tachycardia without ST changes, with slowed down to 120s after fluid resuscitation. Plan to continue fluid resuscitation, if not improved, we will plan on starting beta-blockers. Melissa Perry MD
[2024-03-06 14:32] LABS: Albumin, Serum 2.9 gm/dL (3.5-5.0); Anion Gap 8 (7-16); BUN/Creatinine Ratio 13 Ratio (12-20); Blood Urea Nitrogen 5 mg/dL (9-23); Calcium 7.3 mg/dL (8.3-10.6); Calcium (Corrected) 8.2 mg/dL (8.5-10.1); Carbon Dioxide 22.5 mMol/L (20.0-31.0); Chloride 102 mMol/L (98-107); Creatinine (Component) 0.4 mg/dL (0.6-1.3); Estimated Creatinine Clearance 220.7 mL/min (>60); Glucose 109 mg/dL (74-106); Osmolality,Calculated 262 (275-295); Phosphorous 1.1 mg/dL (2.4-5.1); Potassium 3.6 mMol/L (3.4-5.1); Sodium 132 mMol/L (136-145); eGFR > 60 See Note
[2024-03-06] MEDS: cefTRIAXone/D5w 1gm IV premix 50 ML IV (15:27)
[2024-03-06] MEDS: METOPROLOL SUCCINATE XL 25 MG TABCR PO (17:51)
[2024-03-06] MEDS: CALCIUM CARBONATE 600 MG TABLET PO ×2 (17:53→21:04)
[2024-03-06] MEDS: POTASSIUM PHOS 22.5 MMOL in SODIUM CHLORIDE 0.9% 500 ML 500 ML 82.778 MMOL IV (17:54)
[2024-03-06 18:43] LABS: Alanine Aminotransferase 51 U/L (10-49); Albumin, Serum 3.2 gm/dL (3.5-5.0); Albumin/Globulin Ratio 1.3 (1.2-2.2); Alkaline Phosphatase 148 U/L (46-116); Anion Gap 6 (7-16); Aspartate Amino Transferase 132 U/L (0-34); BUN/Creatinine Ratio 10 Ratio (12-20); Blood Urea Nitrogen < 5 mg/dL (9-23); Calcium 7.4 mg/dL (8.3-10.6); Carbon Dioxide 24.6 mMol/L (20.0-31.0); Chloride 102 mMol/L (98-107); Creatinine (Component) 0.5 mg/dL (0.6-1.3); Estimated Creatinine Clearance 176.5 mL/min (>60); Globulin 2.4 gm/dL (2.3-3.5); Glucose 98 mg/dL (74-106); Osmolality,Calculated 263 (275-295); Phosphorous 1.6 mg/dL (2.4-5.1); Potassium 3.9 mMol/L (3.4-5.1); Sodium 133 mMol/L (136-145); Total Protein 5.6 gm/dL (5.7-8.2); eGFR > 60 See Note
[2024-03-06] MEDS: Magnesium Sulfate 1 gm Ivpb 1 GM/100 ML BAG IV (21:03)
[2024-03-06] MEDS: METOPROLOL TARTRATE 25 MG TABLET PO (21:04)
[2024-03-06] MEDS: NAPH,KPH MBDB 1 PACKET (1.5 GM) PO (21:04)
[2024-03-07] VITALS (9 sets, daily range): BP systolic 117–129; BP diastolic 75–87; PULSE 74–115; RESP 14–20; TEMP 36.3–37.1; O2SAT 93–97
[2024-03-07] MEDS: LORazepam 0.5 MG TABLET PO ×2 (00:31→04:35)
[2024-03-07] MEDS: KETOROLAC INJ 30 MG/ML VIAL IVP ×3 (04:44→19:33)
[2024-03-07] MEDS: SODIUM CHLORIDE 0.9% 1000 ML 1,000 ML 200 ML IV ×3 (06:00→18:07)
[2024-03-07 06:20] LABS: Basophils % (Auto) 1 % (0-2.5); Eosinophils # (Auto) 0.1 Thou/mm3 (0.0-0.5); Eosinophils % (Auto) 1 % (0-10); Hematocrit 35.8 % (36.0-46.0); Hemoglobin 11.9 g/dL (12.0-16.0); Immature Granulocytes % (Auto) 1 % (0-0); Immature Granulocytes Auto 0.06 Thou/mm3 (0.00-0.00); Lymphocytes # (Auto) 0.3 Thou/mm3 (1.0-4.8); Lymphocytes % (Auto) 5 % (10-50); Mean Corpuscular HGB Conc 33.2 g/dl (31.0-37.0); Mean Corpuscular Hemoglobin 35.7 pg (25.0-35.0); Mean Corpuscular Volume 108 fL (80-100); Monocytes # (Auto) 0.8 Thou/mm3 (0.0-0.8); Monocytes % (Auto) 13 % (0-12); Neutrophils # (Auto) 5.2 Thou/mm3 (1.8-7.7); Neutrophils % (Auto) 80 % (37-80); Nucleated Red Blood Cell % 0 /100 WBC (0); Platelet Count 125 Thou/mm3 (140-440); Red Blood Count 3.33 Miln/mm3 (4.00-5.20); White Blood Count 6.5 Thou/mm3 (3.6-11.0)
[2024-03-07 06:49] LABS: Alanine Aminotransferase 35 U/L (10-49); Albumin, Serum 2.7 gm/dL (3.5-5.0); Albumin/Globulin Ratio 1.2 (1.2-2.2); Alkaline Phosphatase 116 U/L (46-116); Anion Gap 8 (7-16); Aspartate Amino Transferase 92 U/L (0-34); BUN/Creatinine Ratio 17 Ratio (12-20); Bilirubin,Total 1.8 mg/dL (0.3-1.2); Blood Urea Nitrogen < 5 mg/dL (9-23); Calcium 7.1 mg/dL (8.3-10.6); Calcium (Corrected) 8.1 mg/dL (8.5-10.1); Carbon Dioxide 21.5 mMol/L (20.0-31.0); Chloride 109 mMol/L (98-107); Creatinine (Component) 0.3 mg/dL (0.6-1.3); Estimated Creatinine Clearance 294.2 mL/min (>60); Free T4 (Free Thyroxine) 0.87 ng/dL (0.89-1.76); Globulin 2.2 gm/dL (2.3-3.5); Glucose 86 mg/dL (74-106); Magnesium 2.2 mg/dL (1.6-2.6); Osmolality,Calculated 271 (275-295); Phosphorous 1.9 mg/dL (2.4-5.1); Potassium 3.9 mMol/L (3.4-5.1); Sodium 138 mMol/L (136-145); Thyroid Stimulating Hormone 1.46 uIU/mL (0.55-4.78); Total Protein 4.9 gm/dL (5.7-8.2); eGFR > 60 See Note
[2024-03-07] MEDS: cefTRIAXone/D5w 1gm IV premix 50 ML IV (09:08)
[2024-03-07] MEDS: METOPROLOL TARTRATE 25 MG TABLET PO ×2 (09:08→21:24)
[2024-03-07] MEDS: FOLIC ACID 1 MG TABLET PO (09:09)
[2024-03-07] MEDS: NAPH,KPH MBDB 1 PACKET (1.5 GM) PO ×2 (09:09→21:23)
[2024-03-07] MEDS: THIAMINE 100 MG TABLET PO (09:09)
[2024-03-07] MEDS: LORazepam 0.5 MG TABLET 1 MG PO ×3 (09:15→21:23)
[2024-03-07] MEDS: HYDROcodone/APAP 5/325 TABLET 1 TAB PO (09:23)
[2024-03-07] MEDS: POT PHOS 15 mMol in NS 250 ML 15 MMOL/250 ML BAG 62.5 MMOL IV (09:50)
--- NOTE | 2024-03-07 13:28 | ESPR_ITS ---
Documentation for date of: 03/07/24 Subjective Subjective Interval history: No overnight events. Patient seen and examined at bedside. Patient reports feeling well, complains of mild abdominal pain improved from before. Notes diarrhea. Denies chest pain, shortness of breath, nausea or vomiting. Patient received Ativan throughout the night due to elevated CIWA score. Continue IV fluids, allow diet as tolerated, continue CIWA protocol. Exam Vital Signs Temp Pulse Resp BP Pulse Ox O2 Del Method 98.8 F 84 14 129/78 96 Room Air 03/07/24 12:00 03/07/24 12:00 03/07/24 12:00 03/07/24 12:00 03/07/24 12:00 03/07/24 12:00 Narrative Exam PE: Gen: Well-developed and well-nourished. HEENT: NCAT, PERRLA, EOMI, MMM, anicteric conjunctivae. CVS: normal S1 and S2. RRR. No M/R/G. Resp: CTA B/L. No rhonchi, rales, crackles or wheezing. Abd: Diffuse mild abdominal tenderness. MSK: Good ROM in BUE & BLE. No edema or rash. Neuro: CN II-XII grossly intact. Strength 5/5 in BUE & BLE. Alert and oriented x3. Psych: appropriate mood and affect. Objective Labs 03/07/24 06:05 03/07/24 06:05 Labs: Laboratory Results - last 24 hr 03/06/24 03/06/24 03/07/24 13:46 18:08 06:05 WBC 6.5 RBC 3.33 L Hgb 11.9 L Hct 35.8 L MCV 108 H MCH 35.7 H MCHC 33.2 RDW Std Deviation 52.0 H Plt Count 125 L Neut % (Auto) 80 Lymph % (Auto) 5 L [place] % (Auto) 13 H Eos % (Auto) 1 Baso % (Auto) 1 Neut # (Auto) 5.2 Lymph # (Auto) 0.3 L [place] # (Auto) 0.8 Eos # (Auto) 0.1 Baso # (Auto) 0.0 Immature Gran # (Auto) 0.06 H Absolute Nucleated RBC 0.00 Immature Gran % 1 H Nucleated RBC % 0 Sodium 132 L 133 L 138 Potassium 3.6 D 3.9 3.9 Chloride 102 102 109 H Carbon Dioxide 22.5 24.6 21.5 Anion Gap 8 6 L 8 BUN 5 L < 5 L < 5 L Creatinine 0.4 L 0.5 L 0.3 L Estim Creat Clear Calc 220.7 176.5 294.2 eGFR > 60 > 60 > 60 BUN/Creatinine Ratio 13 10 L 17 Glucose 109 H 98 86 Calculated Osmolality 262 L 263 L 271 L Calcium 7.3 L 7.4 L 7.1 L Corrected Calcium 8.2 L 8.0 L 8.1 L Phosphorus 1.1 L 1.6 L 1.9 L Magnesium 2.2 Total Bilirubin 2.0 H 1.8 H AST 132 H 92 H ALT 51 H 35 Alkaline Phosphatase 148 H D 116 D Total Protein 5.6 L 4.9 L Albumin 2.9 L 3.2 L 2.7 L D Globulin 2.4 2.2 L Albumin/Globulin Ratio 1.3 1.2 TSH 1.46 Free T4 0.87 L Quality Measures Quality Measures none Assessment & Plan Assessment Current Active Medications: Generic Name Dose Route Start Last Admin Trade Name Freq PRN Reason Stop Dose Admin Acetaminophen 650 mg 03/05/24 13:56 Acetaminophen 325 Mg Tablet PO 04/04/24 13:55 Q4HR PRN PAIN SCALE 1-3 (mild Hydrocodone Bitart/Acetaminophen 1 tab 03/05/24 13:56 03/07/24 09:23 Hydrocodone/Apap 5/325 Tablet PO 03/10/24 13:55 1 tab Q6HR PRN Administration PAIN SCALE 4-6 (Moderate Folic Acid 1 mg 03/06/24 09:00 03/07/24 09:09 Folic Acid 1 Mg Tablet PO 04/05/24 08:59 1 mg QDAY LINDSAY Administration Sodium Chloride 1,000 mls @ 200 mls/hr 03/06/24 11:02 03/07/24 13:23 Ns IV 04/05/24 11:01 200 mls/hr .Q5H LINDSAY Administration Ceftriaxone Sodium/Dextrose 50 mls @ 100 mls/hr 03/06/24 14:31 03/07/24 09:08 Rocephin/D5w 1gm Iv Premix IV 03/13/24 14:30 100 mls/hr QDAY LINDSAY Administration Ketorolac Tromethamine 30 mg 03/05/24 13:56 03/07/24 13:24 Ketorolac Inj 30 Mg/Ml Vial IVP 03/10/24 13:55 30 mg Q6HR PRN Administration Severe Pain 7-10 Lorazepam 0.5 mg 03/06/24 08:00 03/07/24 04:35 Lorazepam 0.5 Mg Tablet PO 03/11/24 07:59 0.5 mg Q2HR PRN Administration Ciwa-Ar Score 2-6 Lorazepam 1 mg 03/06/24 08:00 03/07/24 13:24 Lorazepam 0.5 Mg Tablet PO 03/11/24 07:59 1 mg Q2HR PRN Administration Ciwa-Ar score 7-11 Lorazepam 2 mg 03/06/24 07:46 Lorazepam 2 Mg/Ml Vial IV 03/11/24 07:45 Q2HR PRN CIWA SCORE 20-25 Lorazepam 2 mg 03/06/24 08:00 Lorazepam 0.5 Mg Tablet PO 03/11/24 07:59 Q2HR PRN Ciwa-Ar Score 12-15 Lorazepam 1 mg 03/06/24 11:02 Lorazepam 2 Mg/Ml Vial IV 03/11/24 07:45 Q2HR PRN CIWA SCORE 16-19 Metoprolol Tartrate 25 mg 03/06/24 21:00 03/07/24 09:08 Metoprolol Tartrate 25 Mg Tablet PO 04/05/24 20:59 25 mg BID LINDSAY Administration Potassium Phos/Sodium Phos 1 packet 03/06/24 21:00 03/07/24 09:09 [place],[facility] Mbdb 1 Packet (1.5 Gm) PO 04/05/24 20:59 1 packet BID LINDSAY Administration Thiamine HCl 100 mg 03/06/24 09:00 03/07/24 09:09 Thiamine 100 Mg Tablet PO 04/05/24 08:59 100 mg QDAY LINDSAY Administration Plan Estrella Cabrera is a 23-year-old female with no past medical history who presents for nausea/vomiting, abdominal pain. Patient admitted for treatment of acute pancreatitis. # Acute pancreatitis secondary to alcohol use Patient has a history of chronic alcohol use, 1 pint of vodka for the last 1.5 years. Patient has had several bouts of nausea vomiting, abdominal pain prior to admission. AST 316, ALT 112 on initial presentation Lipase 2433. CT abdomen pelvis shows severe pancreatitis present with edema surrounding the pancreas and free fluid extending into the abdomen. No pseudocyst noted Ochoa's Criteria: 0 = 1% predicted mortality Patient eating pur?ed diet, no nausea vomiting, but has poor appetite. - NaCl 0.9% at 200 mL/h - Acetaminophen, [place], Toradol for pain. - Zofran for nausea - We will continue to monitor labs, symptoms - Replating electrolytes as necessary #Alcohol use disorder Patient attests to drinking 1 pint of vodka every day for the last 1.5 years AST 316, ALT 112 AST and ALT down trended to 126, 54 this a.m. 03/06: CIWA in AM 8 - CIWA protocol in place - Folic acid 1 mg daily - Thiamine 100 mg daily - Will continue to reassess, monitor labs - Contacting resources for cessation resources upon discharge # Elevated transaminases with elevated T. bili T. bili 2.1, AST 316, ALT 112 AST and ALT down trended to 126, 54 this a.m. -Likely related to alcohol intake -Ultrasound liver was negative for stones in the gallbladder or CBD dilation -Continue CIWA protocol -Counseled on alcohol abstinence -Trend LFTs and avoiding hepatotoxic agents #Urinary Tract Infection Patient has a history of recurrent UTIs Patient attests to multiple days of burning on urination on reexamination today UA shows WBC 7, nitrate negative, leukoesterase positive, rare bacteria. - Treating with Rocephin 1 g daily - Urine cultures ordered, pending #Persistent sinus tachycardia Patient has persistently been tachycardic in 110s-120s since admission. Adequate pain control in place as per patient. Heart rate improved with metoprolol -Metoprolol tartrate 25 mg twice daily -Treating underlying pancreatitis and UTI -Acetaminophen, [place], Toradol for pain. #Hx of MDD (?) Per patient's medication record it appears the patient takes escitalopram at home. Last prescription refill the 09/29/23 Patient denies taking any medication at home Diet: Pur?ed diet, will advance to regular diet if tolerated. GI: Pantoprazole DVT: SCDs, JC score 0 no chemoprophylaxis needed Reed: None Lines: Peripheral Dispo: Med-Tele Code: Full Plan of care discussed with senior resident Dr. Barbosa PGY-[address] Perry. Toby Clemente MD PGY-1 Senior Resident Attestation: Patient seen and examined. Feels better today. CIWA was 11 at bedside. Cont IVF for pancreatitis, no vomiting, tolerating minimal PO intake. Cont CIWA protocol, zofran as needed. On rocephin of UTI. I discussed with and supervised the regulatory affairs internship physician involved in the care of this patient. I personally saw and examined the patient and discussed the assessment and plan with the entire medicine team, including my attending. I agree with the assessment and plan as documented above. - Patient's care was discussed with my attending physician. Cristhian Barbosa MD Internal Medicine PGY-3 Attending Provider Attestation/Addendum I attest that I was physically present for the evaluation, physical examination, lab and imaging review of the patient with the residents. I discussed the case with the residents and agree with the findings and plans of care as documented above. At bedside today, patient states she continues to feel better. She still has abdominal pain but managed with analgesics and improving. She has been able to tolerate her diet. Denies any nausea or vomiting. CIWA score this morning was 11. She continued to have high pulse rate and was started on beta-blockers yesterday. Noted to have improved pulse rate today. We will continue with IV hydration, analgesics, CIWA protocol and slowly try to advance her diet. Will also continue Rocephin for her UTI. Melissa Perry MD
--- NOTE | 2024-03-07 15:54 | PC.SS ---
This is 23-year-old, , single female who presented to the ED for abdominal pain. Patient appeared alert and oriented to self, place and situation. Patient resides at home with her mother. Patient is independent with all ADLs, no DME use. 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 Patient's medical decision maker is her mother, Teresa Bolivar ([phone]). Patient's PCP is Dr. Claire. Patient reported drinking a bottle of vodka per day. Patient has been sober since 03/05. In January, patient went to [place]; however, when she was told to return on 02/14, patient did a no show due to having to help her mother at home. Patient reported being aware of AOD programs. provided resources for AOD and [facility]. Patient denied any mental health illnesses, but reported having a history of self harming behaviors by cutting. When medically clear, patient will return home. Discharge plan: home Next of kin: Teresa Barksdale, mother
[2024-03-07] MEDS: LORazepam 0.5 MG TABLET 2 MG PO (18:05)
[2024-03-08] VITALS (10 sets, daily range): BP systolic 122–160; BP diastolic 74–120; PULSE 91–139; RESP 17–24; TEMP 36.1–37.1; O2SAT 93–100
[2024-03-08] MEDS: SODIUM CHLORIDE 0.9% 1000 ML 1,000 ML 200 ML IV (01:17)
[2024-03-08] MEDS: BENZONATATE 100 MG CAPSULE PO (03:24)
[2024-03-08] MEDS: LORazepam 0.5 MG TABLET PO ×4 (03:24→19:33)
--- NOTE | 2024-03-08 03:33 | PC.NURSE ---
Pt woke up continuously coughing with phlegm and having SOB, called MD Sandoval, ordered cough meds. Upon giving her cough meds pt noted SOB, vital signs taken shows BP 165/111, O2 sats on 80% on RA, HR 140's. Called rapid response team. Pt was put on 15 oxymask and now sating at 97%, still SOB. Pt lung sounds become coarse, pt IV fluids discontinued. Lasix 20mg IVP given per MD order and Hydrocortisone 100mg IVP given. Purewick applied for urine output monitoring.
--- NOTE | 2024-03-08 03:38 | XR_ITS ---
Examination: AP chest single view Technique one AP portable upright chest single view March 08, 2024 1548 hrs. Indications: Tachypnea today Findings: Normal heart size Significant pneumonia left base retrocardiac Mild vascular congestion Intact osseous structures Impression: Significant left base pneumonia
--- NOTE | 2024-03-08 03:51 | EKG_ITS ---
[facility] Test Date: 2024-03-08 Pat Name: LOIS SINCLAIR Department: Room: S383A Gender: Female [employer]forming [employer] Manager: MAT : 2000 Requested By: Balta Bauer Order Number: [id number] Reading MD: Balta Bauer Measurements Intervals [place] Rate: 136 P: 57 SC: 156 QRS: 33 QRSD: 64 T: 20 QT: 263 QTc: 396 Interpretive Statements SINUS TACHYCARDIA LOW QRS VOLTAGE IN PRECORDIAL LEADS [QRS DEFLECTION < 1.0 mV IN CHEST LEADS] ABNORMAL RHYTHM ECG Compared to ECG 03/06/2024 11:13:30 Low QRS voltage now present /store/S0/[id number]/[id number]
[2024-03-08] MEDS: FUROSEMIDE INJ 10 MG/ML 4ML VIAL 20 MG IVP (03:53)
[2024-03-08] MEDS: HYDROCORTISONE SOD SUCC INJ 100 MG VIAL IV (04:00)
--- NOTE | 2024-03-08 04:04 | EVENTNT_ITS ---
Documentation for date of: 03/08/24 Event Note Event Note: Rapid Response Room: [facility] Time: 03:45 Reason for Call: O2 desaturation to 70s on room air Patient presentation: Patient laying bed with head elevated, in no acute distress, eyes closed. Awoke to voice, stated that she got up to use the toilet, then when she sat back down in bed started feeling short of breath all of a sudden. Vitals showed BP 160/20, HR 136, RR 20s, Temp 98, O2 85% on 15L. On ex amination patient had wet crackles in all lung mccabe bilaterally. Patient denies further abdominal pain and reports tolerating diet today without nausea or vomiting. Events: Patient earlier tonight had started complaining of wet cough, was given benzonatate 100 mg x1. CIWA assessment around 02:00 am score 5, patient got 0.5 mg lorazepam. Per RN patient around 03:40 was placed on oxygen when she was noted to be desatting to the 70s. Assessment: Patient has received about 14L fluid In since admission, unknown Out measurement due to patient mostly voiding in toilet with flush. Most likely flu id overload secondary to IV fluids, possible pulmonary edema. Differentials include acute lung injury/ARDS due to severe pancreatitis, pneumonia, pulmonary embolism. New orders: Stopped IV fluids. Studies - CXR, EKG, draw AM labs now, added BNP. Meds given - Lasix 20 mg IV x1, hydrocortisone 100 mg IV x1, sodium chloride and DuoNeb breathing treatments. Patient to try PureWick for accurate I&O me asurements. Patient was discussed with the attending, Dr. Valdovinos and team residents, Balta Bauer PGY-1 and Angel Sandoval PGY-1. Zaria Rouse, PGY-2
[2024-03-08 04:15] LABS: Basophils # (Auto) 0.1 Thou/mm3 (0.0-0.2); Basophils % (Auto) 1 % (0-2.5); Eosinophils # (Auto) 0.1 Thou/mm3 (0.0-0.5); Eosinophils % (Auto) 1 % (0-10); Hematocrit 38.4 % (36.0-46.0); Hemoglobin 12.9 g/dL (12.0-16.0); Immature Granulocytes % (Auto) 1 % (0-0); Immature Granulocytes Auto 0.06 Thou/mm3 (0.00-0.00); Lymphocytes # (Auto) 0.7 Thou/mm3 (1.0-4.8); Lymphocytes % (Auto) 7 % (10-50); Mean Corpuscular HGB Conc 33.6 g/dl (31.0-37.0); Mean Corpuscular Hemoglobin 36.1 pg (25.0-35.0); Mean Corpuscular Volume 108 fL (80-100); Monocytes # (Auto) 1.1 Thou/mm3 (0.0-0.8); Monocytes % (Auto) 10 % (0-12); Neutrophils # (Auto) 9.1 Thou/mm3 (1.8-7.7); Neutrophils % (Auto) 82 % (37-80); Nucleated Red Blood Cell % 0 /100 WBC (0); Platelet Count 120 Thou/mm3 (140-440); RDW Standard Deviation 51.8 fL (36.4-46.3); Red Blood Count 3.57 Miln/mm3 (4.00-5.20); White Blood Count 11.1 Thou/mm3 (3.6-11.0)
[2024-03-08] MEDS: ALBUTEROL/IPRATROPIUM (Duoneb) RT SOL 3 ML NEBU INH (04:20)
[2024-03-08] MEDS: SODIUM CHLORIDE RT 10% 15 ML NEBU INH (04:20)
[2024-03-08 04:32] LABS: B-Type Natriuretic Peptide 70 pg/mL (0-100)
[2024-03-08 05:28] LABS: Alanine Aminotransferase 15 U/L (10-49); Albumin, Serum 3.2 gm/dL (3.5-5.0); Albumin/Globulin Ratio 1.3 (1.2-2.2); Alkaline Phosphatase 142 U/L (46-116); Anion Gap 6 (7-16); Aspartate Amino Transferase 79 U/L (0-34); BUN/Creatinine Ratio 10 Ratio (12-20); Bilirubin,Total 2.2 mg/dL (0.3-1.2); Blood Urea Nitrogen < 5 mg/dL (9-23); Calcium 7.8 mg/dL (8.3-10.6); Calcium (Corrected) 8.4 mg/dL (8.5-10.1); Carbon Dioxide 22.9 mMol/L (20.0-31.0); Chloride 109 mMol/L (98-107); Creatinine (Component) 0.5 mg/dL (0.6-1.3); Estimated Creatinine Clearance 176.5 mL/min (>60); Globulin 2.5 gm/dL (2.3-3.5); Glucose 89 mg/dL (74-106); Magnesium 1.9 mg/dL (1.6-2.6); Osmolality,Calculated 271 (275-295); Phosphorous 2.6 mg/dL (2.4-5.1); Potassium 4.7 mMol/L (3.4-5.1); Sodium 138 mMol/L (136-145); Total Protein 5.7 gm/dL (5.7-8.2); eGFR > 60 See Note
[2024-03-08] MEDS: cefTRIAXone/D5w 1gm IV premix 50 ML IV (08:17)
[2024-03-08] MEDS: METOPROLOL TARTRATE 25 MG TABLET PO ×2 (08:18→20:17)
[2024-03-08] MEDS: LACTOBACILLUS RHAMNOSUS 1 CAP PO ×2 (08:18→20:16)
[2024-03-08] MEDS: FOLIC ACID 1 MG TABLET PO (08:19)
[2024-03-08] MEDS: NAPH,KPH MBDB 1 PACKET (1.5 GM) PO ×2 (08:19→20:16)
[2024-03-08] MEDS: THIAMINE 100 MG TABLET PO (08:19)
[2024-03-08] MEDS: Magnesium Sulfate 2 GM Ivpb 2 GM/50 ML BAG IV (10:04)
[2024-03-08] MEDS: CALCIUM CARBONATE 600 MG TABLET PO (10:04)
[2024-03-08 11:34] LABS: Lipase 210 U/L (12-53)
[2024-03-08] MEDS: HYDROcodone/APAP 5/325 TABLET 1 TAB PO ×2 (12:03→19:33)
--- NOTE | 2024-03-08 12:31 | PC.SS ---
Rounding: Pt on CIWA protocol, pending labs, and increase diet
--- NOTE | 2024-03-08 15:58 | ESPR_ITS ---
<Statement entered by Mirza Lopez MD - 03/08/24 16:53> Patient was seen and examined at the bedside. Overnight rapid response was called because of hypoxia and shortness of breath. Patient was desaturating in 70s. Chest x-ray was ordered and patient was given a dose of Lasix and fluids were discontinued by the night team. Patient was initially placed on 15 L OxyMask however she is breathing comfortably on room air this morning. She was feeling anxious and her CIWA score was 7. We ordered lipase and lactic acid which came and unremarkable. Other labs showed hemoglobin at 12. Chemistry panel was unremarkable. Kidney functions were stable. Electrolytes were repleted. Will likely continue CIWA protocol continue pain management and encouraged on oral hydration. Night team placed an order for C. difficile as patient was passing loose watery stools however denied any bowel movement this morning. Will follow-up with C. difficile results. Started on regular diet. All labs and orders were reviewed. I saw and examined the patient, and I agree with current management stated by Dr Arauz, PGY1. Plan of care was discussed with the attending physician and resident physician. Disclaimer: Despite multiple revisions, due to the dictation software being used, the document bellow may not be free of grammatical errors including phonetic/typographic errors. However, this does not deter from our commitment to providing health care in the patient's best interest in mind. Dr. Hernandez MD, PGY 2 Documentation for date of: 03/08/24 Subjective Subjective Interval history: 03/06: No acute events overnight. Vital signs notable for tachycardia with heart rates in 120s to 130s. EKG shows sinus tachycardia BP stable at 130/90, respiratory rate 20, afebrile. CBC normal. CMP notable for potassium of 5.2. AST this a.m. 126 from 316, ALT 54 from 112. Patient states that she subjectively feels better, slightly gets lightheaded and feels palpitations walking to the restroom. But overall better. CIWA score of 8 in this a.m. Tolerated clear liquids, proceeding with pur?ed for lunch. Fluid balance +4 L, however unmeasured voids not accounted for. Patient does attest to several days of burning urination, has a history of recurrent UTIs. Urinalysis shows WBC 7, nitrite negative, leukoesterase positive. Treating with Rocephin 1 g daily. Will continue to follow throughout the day. 03/07: No overnight events. Patient seen and examined at bedside. Patient reports feeling well, complains of mild abdominal pain improved from before. Notes diarrhea. Denies chest pain, shortness of breath, nausea or vomiting. Patient received Ativan throughout the night due to elevated CIWA score. Continue IV fluids, allow diet as tolerated, continue CIWA protocol. 03/08: Overnight rapid response called for desaturation event to 70s. Checks x- ray shows possible pneumonia left base vascular congestion. EKG sinus tachycardia, BNP obtained resulted 70. Lasix, steroids given, fluids stopped. In a.m. exam patient saturating 98 % on room air, states her shortness of breath is much better. Still test to mild epigastric pain, but states that it is improving. Patient states that her diarrhea is improving, and that her stool is becoming more solid. C. difficile sent, lipase 200s, lactic acid 1.0. CIWA 5 this a.m. Exam Vital Signs Temp Pulse Resp BP Pulse Ox O2 Del Method O2 Flow Rate 97.1 F 114 H 18 122/97 H 97 Room Air 3 03/08/24 12:00 03/08/24 12:00 03/08/24 12:00 03/08/24 12:03/08/24 12:03/08/24 12:03/08/24 04:07 Narrative Exam PE: Gen: Well-developed and well-nourished. HEENT: NCAT, PERRLA, EOMI, MMM, anicteric conjunctivae. CVS: normal S1 and S2. RRR. No M/R/G. Resp: CTA B/L. No rhonchi, rales, crackles or wheezing. Abd: Mild diffuse mild abdominal tenderness. MSK: Good ROM in BUE & BLE. No edema or rash. Neuro: CN II-XII grossly intact. Strength 5/5 in BUE & BLE. Alert and oriented x3. Psych: appropriate mood and affect. Objective Labs 03/08/24 04:02 03/08/24 04:02 Labs: Laboratory Results - last 24 hr 03/08/24 03/08/24 03/08/24 04:02 10:57 11:16 WBC 11.1 H D RBC 3.57 L Hgb 12.9 Hct 38.4 MCV 108 H MCH 36.1 H MCHC 33.6 RDW Std Deviation 51.8 H Plt Count 120 L Neut % (Auto) 82 H Lymph % (Auto) 7 L [place] % (Auto) 10 Eos % (Auto) 1 Baso % (Auto) 1 Neut # (Auto) 9.1 H Lymph # (Auto) 0.7 L [place] # (Auto) 1.1 H Eos # (Auto) 0.1 Baso # (Auto) 0.1 Immature Gran # (Auto) 0.06 H Absolute Nucleated RBC 0.00 Immature Gran % 1 H Nucleated RBC % 0 Sodium 138 Potassium 4.7 D Chloride 109 H Carbon Dioxide 22.9 Anion Gap 6 L BUN < 5 L Creatinine 0.5 L Estim Creat Clear Calc 176.5 eGFR > 60 BUN/Creatinine Ratio 10 L Glucose 89 Calculated Osmolality 271 L Lactic Acid 1.0 Calcium 7.8 L Corrected Calcium 8.4 L Phosphorus 2.6 Magnesium 1.9 Total Bilirubin 2.2 H AST 79 H ALT 15 Alkaline Phosphatase 142 H D B-Natriuretic Peptide 70 Total Protein 5.7 Albumin 3.2 L D Globulin 2.5 Albumin/Globulin Ratio 1.3 Lipase 210 H D Stl C. diff Tox B Gene Cancelled Quality Measures Quality Measures none Assessment & Plan Assessment Current Active Medications: Generic Name Dose Route Start Last Admin Trade Name Freq PRN Reason Stop Dose Admin Acetaminophen 650 mg 03/05/24 13:56 Acetaminophen 325 Mg Tablet PO 04/04/24 13:55 Q4HR PRN PAIN SCALE 1-3 (mild Hydrocodone Bitart/Acetaminophen 1 tab 03/05/24 13:56 03/08/24 12:03 Hydrocodone/Apap 5/325 Tablet PO 03/10/24 13:55 1 tab Q6HR PRN Administration PAIN SCALE 4-6 (Moderate Folic Acid 1 mg 03/06/24 09:00 03/08/24 08:19 Folic Acid 1 Mg Tablet PO 04/05/24 08:59 1 mg QDAY LINDSAY Administration Ceftriaxone Sodium/Dextrose 50 mls @ 100 mls/hr 03/06/24 14:31 03/08/24 08:17 Rocephin/D5w 1gm Iv Premix IV 03/13/24 14:30 100 mls/hr QDAY LINDSAY Administration Ketorolac Tromethamine 30 mg 03/05/24 13:56 03/07/24 19:33 Ketorolac Inj 30 Mg/Ml Vial IVP 03/10/24 13:55 30 mg Q6HR PRN Administration Severe Pain 7-10 Lactobacillus Rhamnosus 1 cap 03/08/24 09:00 03/08/24 08:18 Lactobacillus Rhamnosus 1 Cap PO 04/07/24 08:59 1 cap BID LINDSAY Administration Lorazepam 0.5 mg 03/06/24 08:00 03/08/24 11:08 Lorazepam 0.5 Mg Tablet PO 03/11/24 07:59 0.5 mg Q2HR PRN Administration Ciwa-Ar Score 2-6 Lorazepam 1 mg 03/06/24 08:00 03/07/24 21:23 Lorazepam 0.5 Mg Tablet PO 03/11/24 07:59 1 mg Q2HR PRN Administration Ciwa-Ar score 7-11 Lorazepam 2 mg 03/06/24 07:46 Lorazepam 2 Mg/Ml Vial IV 03/11/24 07:45 Q2HR PRN CIWA SCORE 20-25 Lorazepam 2 mg 03/06/24 08:00 03/07/24 18:05 Lorazepam 0.5 Mg Tablet PO 03/11/24 07:59 2 mg Q2HR PRN Administration Ciwa-Ar Score 12-15 Lorazepam 1 mg 03/06/24 11:02 Lorazepam 2 Mg/Ml Vial IV 03/11/24 07:45 Q2HR PRN CIWA SCORE 16-19 Metoprolol Tartrate 25 mg 03/06/24 21:00 03/08/24 08:18 Metoprolol Tartrate 25 Mg Tablet PO 04/05/24 20:59 25 mg BID LINDSAY Administration Potassium Phos/Sodium Phos 1 packet 03/06/24 21:00 03/08/24 08:19 Naph,h Mbdb 1 Packet (1.5 Gm) PO 04/05/24 20:59 1 packet BID LINDSAY Administration Thiamine HCl 100 mg 03/06/24 09:00 03/08/24 08:19 Thiamine 100 Mg Tablet PO 04/05/24 08:59 100 mg QDAY LINDSAY Administration Plan Estrella Cabrera is a 23-year-old female with no past medical history who presents for nausea/vomiting, abdominal pain. Patient admitted for treatment of acute pancreatitis. # Acute pancreatitis secondary to alcohol use Patient has a history of chronic alcohol use, 1 pint of vodka for the last 1.5 years. Patient has had several bouts of nausea vomiting, abdominal pain prior to admission. AST 316, ALT 112 on initial presentation Lipase 2433. CT abdomen pelvis shows severe pancreatitis present with edema surrounding the pancreas and free fluid extending into the abdomen. No pseudocyst noted Ochoa's Criteria: 0 = 1% predicted mortality 03/08: Fluids stopped due to suspicion for fluid overload. Patient is on regular diet, will continue to trend fluid status - Acetaminophen, York, Toradol for pain. - Zofran for nausea - We will continue to monitor labs, symptoms - Repleting electrolytes as necessary #Pulmonary Vascular Congestion- appears to be improving #Possible Left lower lobe pneumonia Rapid response called overnight 03/07 to 03/08 for desaturations to the 70s. Chest x-ray shows possible pneumonia left base with pulmonary vascular congestion. Lasix 6 given, fluids stopped In a.m. on 03/08 patient states that her shortness of breath is much better. Patient is saturating 98 % on room air. Patient appears to be 14 L over, but unmeasured voids are not accounted for and patient states she has been voiding quite frequently Chest x-ray shows pneumonia left base, pulmonary vascular congestion Lasix given, BNP resulted 70, EKG shows sinus tachycardia Patient has been on Rocephin 1 g for suspected UTI which has resulted negative blood culture. - Fluids stopped, patient has a regular diet now , will continuously reassess fluid status - Rocephin 1g Qday 03/06- #Alcohol use disorder Patient attests to drinking 1 pint of vodka every day for the last 1.5 years AST 316, ALT 112 AST and ALT down trended to 126, 54 this a.m. 03/06: CIWA in AM 8 03/08: CIWA in AM 5 - CIWA protocol in place - Folic acid 1 mg daily - Thiamine 100 mg daily - Will continue to reassess, monitor labs - Contacting resources for cessation resources upon discharge # Elevated transaminases with elevated T. bili T. bili 2.1, AST 316, ALT 112 AST and ALT down trended to 126, 54 this a.m. -Likely related to alcohol intake -Ultrasound liver was negative for stones in the gallbladder or CBD dilation -Continue CIWA protocol -Counseled on alcohol abstinence -Trend LFTs and avoiding hepatotoxic agents #Persistent sinus tachycardia Patient has persistently been tachycardic in 110s-120s since admission. Adequate pain control in place as per patient. Heart rate improved with metoprolol -Metoprolol tartrate 25 mg twice daily -Treating underlying pancreatitis and UTI -Acetaminophen, York, Toradol for pain. #Urinary Tract Infection- appears resolved Patient has a history of recurrent UTIs Patient attests to multiple days of burning on urination on reexamination today UA shows WBC 7, nitrate negative, leukoesterase positive, rare bacteria. Urine culture appears to be negative #Hx of MDD (?) Per patient's medication record it appears the patient takes escitalopram at home. Last prescription refill the 09/29/23 Patient denies taking any medication at home Diet: Pur?ed diet, will advance to regular diet if tolerated. GI: Pantoprazole DVT: SCDs, JC score 0 no chemoprophylaxis needed Reed: None Lines: Peripheral Dispo: Med-Tele Code: Full Patient's care was discussed with my attending physician Dr. Perry and senior residents on service Davonte Miller D.O. PGY1 Anesthesiology Attending Provider Attestation/Addendum I attest that I was physically present for the evaluation, physical examination, lab and imaging review of the patient with the residents. I discussed the case with the residents and agree with the findings and plans of care as documented above. Overnight, patient had an episode of shortness of breath, cough and crackles on examination. Chest x-ray showed bilateral infiltrates, she was started on one- time dose of Lasix and supplemental oxygen. Possibly related to volume overload. This morning, patient appears comfortable and denies any shortness of breath. She is back to saturating well on room air. Continues to have some abdominal pain, managed with analgesics. We will discontinue IV hydration, patient has been tolerating oral diet well. Had a CIWA score of 6 this morning, we will continue to monitor and treat for withdrawal symptoms. Melissa Perry MD
[2024-03-09] VITALS (11 sets, daily range): BP systolic 121–148; BP diastolic 66–94; PULSE 97–139; RESP 17–19; TEMP 36.2–38.7; O2SAT 91–100
[2024-03-09] MEDS: HYDROcodone/APAP 5/325 TABLET 1 TAB PO ×2 (04:30→10:52)
[2024-03-09] MEDS: LORazepam 0.5 MG TABLET PO ×3 (04:30→17:53)
--- NOTE | 2024-03-09 04:42 | PC.NURSE ---
dr coburn notified of pt HR reaching 150 and sustaining in the 130's. No new orders at this time.
[2024-03-09 06:33] LABS: Basophils % (Auto) 0 % (0-2.5); Eosinophils # (Auto) 0.1 Thou/mm3 (0.0-0.5); Eosinophils % (Auto) 1 % (0-10); Hematocrit 35.5 % (36.0-46.0); Hemoglobin 12.1 g/dL (12.0-16.0); Immature Granulocytes % (Auto) 1 % (0-0); Immature Granulocytes Auto 0.06 Thou/mm3 (0.00-0.00); Lymphocytes # (Auto) 0.3 Thou/mm3 (1.0-4.8); Lymphocytes % (Auto) 3 % (10-50); Mean Corpuscular HGB Conc 34.1 g/dl (31.0-37.0); Mean Corpuscular Hemoglobin 35.9 pg (25.0-35.0); Mean Corpuscular Volume 105 fL (80-100); Monocytes # (Auto) 1.1 Thou/mm3 (0.0-0.8); Monocytes % (Auto) 14 % (0-12); Neutrophils # (Auto) 6.8 Thou/mm3 (1.8-7.7); Neutrophils % (Auto) 82 % (37-80); Nucleated Red Blood Cell % 0 /100 WBC (0); Platelet Count 143 Thou/mm3 (140-440); RDW Standard Deviation 49.5 fL (36.4-46.3); Red Blood Count 3.37 Miln/mm3 (4.00-5.20); White Blood Count 8.3 Thou/mm3 (3.6-11.0)
[2024-03-09 08:09] LABS: Alanine Aminotransferase 28 U/L (10-49); Albumin, Serum 2.8 gm/dL (3.5-5.0); Albumin/Globulin Ratio 1.2 (1.2-2.2); Alkaline Phosphatase 118 U/L (46-116); Anion Gap 9 (7-16); Aspartate Amino Transferase 33 U/L (0-34); BUN/Creatinine Ratio 15 Ratio (12-20); Bilirubin,Total 1.4 mg/dL (0.3-1.2); Blood Urea Nitrogen 6 mg/dL (9-23); Calcium 7.8 mg/dL (8.3-10.6); Calcium (Corrected) 8.8 mg/dL (8.5-10.1); Carbon Dioxide 22.2 mMol/L (20.0-31.0); Chloride 106 mMol/L (98-107); Creatinine (Component) 0.4 mg/dL (0.6-1.3); Estimated Creatinine Clearance 220.7 mL/min (>60); Globulin 2.3 gm/dL (2.3-3.5); Glucose 105 mg/dL (74-106); Magnesium 1.8 mg/dL (1.6-2.6); Osmolality,Calculated 271 (275-295); Phosphorous 2.7 mg/dL (2.4-5.1); Potassium 3.6 mMol/L (3.4-5.1); Sodium 137 mMol/L (136-145); Total Protein 5.1 gm/dL (5.7-8.2); eGFR > 60 See Note
[2024-03-09] MEDS: LACTOBACILLUS RHAMNOSUS 1 CAP PO ×2 (08:43→20:14)
[2024-03-09] MEDS: FOLIC ACID 1 MG TABLET PO (08:43)
[2024-03-09] MEDS: NAPH,KPH MBDB 1 PACKET (1.5 GM) PO ×2 (08:43→20:14)
[2024-03-09] MEDS: cefTRIAXone/D5w 1gm IV premix 50 ML IV (08:43)
[2024-03-09] MEDS: METOPROLOL TARTRATE 25 MG TABLET PO ×2 (08:43→20:14)
[2024-03-09] MEDS: THIAMINE 100 MG TABLET PO (08:44)
[2024-03-09] MEDS: Magnesium Sulfate 1 gm Ivpb 1 GM/100 ML BAG IV (10:35)
[2024-03-09] MEDS: POTASSIUM CHLORIDE 20 mEq TABCR PO (10:36)
--- NOTE | 2024-03-09 15:56 | ESPR_ITS ---
<Statement entered by Mirza Lopez MD - 03/09/24 18:10> Patient was seen and examined at the bedside. Patient reported that she has been eating and drinking well without any nausea or vomiting. She was still having CIWA score of 4 and was managed with Ativan. Vitals showed mild tachycardia therefore we added gabapentin 300 mg at bedtime to manage withdrawal symptoms. Managing her pain and currently not requiring fluids and recommended oral hydration. Will likely anticipate discharge tomorrow morning if patient remains stable and CIWA score is 0. Currently awaiting C. difficile results. No acute overnight events reported. Patient passed formed bowel movement. All labs and orders were reviewed. I saw and examined the patient, and I agree with current management stated by Dr Davonte MD,PGY1. Plan of care was discussed with the attending physician and resident physician. Disclaimer: Despite multiple revisions, due to the dictation software being used, the document bellow may not be free of grammatical errors including phonetic/typographic errors. However, this does not deter from our commitment to providing health care in the patient's best interest in mind. Dr. John MD, PGY 2 Documentation for date of: 03/09/24 Subjective Subjective Interval history: 03/06: No acute events overnight. Vital signs notable for tachycardia with heart rates in 120s to 130s. EKG shows sinus tachycardia BP stable at 130/90, respiratory rate 20, afebrile. CBC normal. CMP notable for potassium of 5.2. AST this a.m. 126 from 316, ALT 54 from 112. Patient states that she subjectively feels better, slightly gets lightheaded and feels palpitations walking to the restroom. But overall better. CIWA score of 8 in this a.m. Tolerated clear liquids, proceeding with pur?ed for lunch. Fluid balance +4 L, however unmeasured voids not accounted for. Patient does attest to several days of burning urination, has a history of recurrent UTIs. Urinalysis shows WBC 7, nitrite negative, leukoesterase positive. Treating with Rocephin 1 g daily. Will continue to follow throughout the day. 03/07: No overnight events. Patient seen and examined at bedside. Patient reports feeling well, complains of mild abdominal pain improved from before. Notes diarrhea. Denies chest pain, shortness of breath, nausea or vomiting. Patient received Ativan throughout the night due to elevated CIWA score. Continue IV fluids, allow diet as tolerated, continue CIWA protocol. 03/08: Overnight rapid response called for desaturation event to 70s. Checks x- ray shows possible pneumonia left base vascular congestion. EKG sinus tachycardia, BNP obtained resulted 70. Lasix, steroids given, fluids stopped. In a.m. exam patient saturating 98 % on room air, states her shortness of breath is much better. Still test to mild epigastric pain, but states that it is improving. Patient states that her diarrhea is improving, and that her stool is becoming more solid. C. difficile sent, lipase 200s, lactic acid 1.0. CIWA 5 this a.m. 03/09: No acute events overnight. Vital signs this a.m. stable except for persistent tachycardia at 110s. CBC normal, electrolytes normal, AST ALT 33 and 28 respectively. Patient states that her abdominal pain is getting better, CIWA this a.m. 2, at lunchtime 5. Patient is slowly tolerating regular diet patient states that her stool is soft, not diarrhea anymore. No more burning on urination. Adding gabapentin. Possible discharge tomorrow. Exam Vital Signs Temp Pulse Resp BP Pulse Ox O2 Del Method O2 Flow Rate 100.5 F H 115 H 18 121/78 92 L Room Air 3 03/09/24 12:00 03/09/24 12:03/09/24 12:03/09/24 12:03/09/24 12:03/09/24 12:03/08/24 04:07 Narrative Exam PE: Gen: Well-developed and well-nourished. HEENT: NCAT, PERRLA, EOMI, MMM, anicteric conjunctivae. CVS: normal S1 and S2. RRR. No M/R/G. Resp: CTA B/L. No rhonchi, rales, crackles or wheezing. Abd: Mild diffuse mild abdominal tenderness. MSK: Good ROM in BUE & BLE. No edema or rash. Neuro: CN II-XII grossly intact. Strength 5/5 in BUE & BLE. Alert and oriented x3. Psych: appropriate mood and affect. Objective Labs 03/10/24 04:20 03/10/24 04:20 Labs: Laboratory Results - last 24 hr 03/09/24 06:07 WBC 8.3 RBC 3.37 L Hgb 12.1 Hct 35.5 L MCV 105 H MCH 35.9 H MCHC 34.1 RDW Std Deviation 49.5 H Plt Count 143 Neut % (Auto) 82 H Lymph % (Auto) 3 L [place] % (Auto) 14 H Eos % (Auto) 1 Baso % (Auto) 0 Neut # (Auto) 6.8 Lymph # (Auto) 0.3 L [place] # (Auto) 1.1 H Eos # (Auto) 0.1 Baso # (Auto) 0.0 Immature Gran # (Auto) 0.06 H Absolute Nucleated RBC 0.00 Immature Gran % 1 H Nucleated RBC % 0 Sodium 137 Potassium 3.6 D Chloride 106 Carbon Dioxide 22.2 Anion Gap 9 BUN 6 L Creatinine 0.4 L Estim Creat Clear Calc 220.7 eGFR > 60 BUN/Creatinine Ratio 15 Glucose 105 Calculated Osmolality 271 L Calcium 7.8 L Corrected Calcium 8.8 Phosphorus 2.7 Magnesium 1.8 Total Bilirubin 1.4 H D AST 33 ALT 28 Alkaline Phosphatase 118 H D Total Protein 5.1 L Albumin 2.8 L Globulin 2.3 Albumin/Globulin Ratio 1.2 Quality Measures Quality Measures none Assessment & Plan Assessment Current Active Medications: Generic Name Dose Route Start Last Admin Trade Name Freq PRN Reason Stop Dose Admin Acetaminophen 650 mg 03/05/24 13:56 Acetaminophen 325 Mg Tablet PO 04/04/24 13:55 Q4HR PRN PAIN SCALE 1-3 (mild Hydrocodone Bitart/Acetaminophen 1 tab 03/05/24 13:56 03/09/24 10:52 Hydrocodone/Apap 5/325 Tablet PO 03/10/24 13:55 1 tab Q6HR PRN Administration PAIN SCALE 4-6 (Moderate Folic Acid 1 mg 03/06/24 09:00 03/09/24 08:43 Folic Acid 1 Mg Tablet PO 04/05/24 08:59 1 mg QDAY LINDSAY Administration Gabapentin 300 mg 03/09/24 21:00 Gabapentin 300 Mg Capsule PO 04/08/24 20:59 HS LINDSAY Ceftriaxone Sodium/Dextrose 50 mls @ 100 mls/hr 03/10/24 09:00 Rocephin/D5w 1gm Iv Premix IV 03/17/24 08:59 QDAY LINDSAY Ketorolac Tromethamine 30 mg 03/05/24 13:56 03/07/24 19:33 Ketorolac Inj 30 Mg/Ml Vial IVP 03/10/24 13:55 30 mg Q6HR PRN Administration Severe Pain 7-10 Lactobacillus Rhamnosus 1 cap 03/08/24 09:00 03/09/24 08:43 Lactobacillus Rhamnosus 1 Cap PO 04/07/24 08:59 1 cap BID LINDSAY Administration Lorazepam 0.5 mg 03/06/24 08:00 03/09/24 10:52 Lorazepam 0.5 Mg Tablet PO 03/11/24 07:59 0.5 mg Q2HR PRN Administration Ciwa-Ar Score 2-6 Lorazepam 1 mg 03/06/24 08:00 03/07/24 21:23 Lorazepam 0.5 Mg Tablet PO 03/11/24 07:59 1 mg Q2HR PRN Administration Ciwa-Ar score 7-11 Lorazepam 2 mg 03/06/24 07:46 Lorazepam 2 Mg/Ml Vial IV 03/11/24 07:45 Q2HR PRN CIWA SCORE 20-25 Lorazepam 2 mg 03/06/24 08:00 03/07/24 18:05 Lorazepam 0.5 Mg Tablet PO 03/11/24 07:59 2 mg Q2HR PRN Administration Ciwa-Ar Score 12-15 Lorazepam 1 mg 03/06/24 11:02 Lorazepam 2 Mg/Ml Vial IV 03/11/24 07:45 Q2HR PRN CIWA SCORE 16-19 Metoprolol Tartrate 25 mg 03/06/24 21:00 03/09/24 08:43 Metoprolol Tartrate 25 Mg Tablet PO 04/05/24 20:59 25 mg BID LINDSAY Administration Potassium Phos/Sodium Phos 1 packet 03/06/24 21:00 03/09/24 08:43 Naph,h Mbdb 1 Packet (1.5 Gm) PO 04/05/24 20:59 1 packet BID LINDSAY Administration Thiamine HCl 100 mg 03/06/24 09:00 03/09/24 08:44 Thiamine 100 Mg Tablet PO 04/05/24 08:59 100 mg QDAY LINDSAY Administration Plan Estrella Cabrera is a 23-year-old female with no past medical history who presents for nausea/vomiting, abdominal pain. Patient admitted for treatment of acute pancreatitis. #Pulmonary Vascular Congestion- appears to be improving #Possible Left lower lobe pneumonia Rapid response called overnight 03/07 to 03/08 for desaturations to the 70s. Chest x-ray shows possible pneumonia left base with pulmonary vascular congestion. Lasix 6 given, fluids stopped In a.m. on 03/08 patient states that her shortness of breath is much better. Patient is saturating 98 % on room air. Patient appears to be 14 L over, but unmeasured voids are not accounted for and patient states she has been voiding quite frequently Chest x-ray shows pneumonia left base, pulmonary vascular congestion Lasix given, BNP resulted 70, EKG shows sinus tachycardia Patient has been on Rocephin 1 g for suspected UTI which has resulted negative blood culture. - Fluids stopped, patient has a regular diet now , will continuously reassess fluid status - Rocephin 1g Qday 03/06-03/10 #Alcohol use disorder Patient attests to drinking 1 pint of vodka every day for the last 1.5 years AST 316, ALT 112 AST and ALT down trended to 126, 54 this a.m. 03/06: CIWA in AM 8 03/08: CIWA in AM 5 03/09: CIWA 2, 5 respectively - CIWA protocol in place - Folic acid 1 mg daily - Thiamine 100 mg daily - Will continue to reassess, monitor labs - Contacting resources for cessation resources upon discharge - [id number] Mg p.o. at bedtime x 1 # Acute pancreatitis secondary to alcohol use Patient has a history of chronic alcohol use, 1 pint of vodka for the last 1.5 years. Patient has had several bouts of nausea vomiting, abdominal pain prior to admission. AST 316, ALT 112 on initial presentation Lipase 2433. CT abdomen pelvis shows severe pancreatitis present with edema surrounding the pancreas and free fluid extending into the abdomen. No pseudocyst noted Ochoa's Criteria: 0 = 1% predicted mortality 03/08: Fluids stopped due to suspicion for fluid overload. Patient is on regular diet, will continue to trend fluid status - Acetaminophen, Milmay, Toradol for pain. - Zofran for nausea - We will continue to monitor labs, symptoms - Repleting electrolytes as necessary #Persistent sinus tachycardia Patient has persistently been tachycardic in 110s-120s since admission. Adequate pain control in place as per patient. Heart rate improved with metoprolol -Metoprolol tartrate 25 mg twice daily -Treating underlying pancreatitis and UTI -Acetaminophen, Milmay, Toradol for pain. # Elevated transaminases with elevated T. bili- improving T. bili 2.1, AST 316, ALT 112 AST and ALT normalized this a.m. -Likely related to alcohol intake -Ultrasound liver was negative for stones in the gallbladder or CBD dilation -Continue CIWA protocol -Counseled on alcohol abstinence -Trend LFTs and avoiding hepatotoxic agents #Urinary Tract Infection- appears resolved Patient has a history of recurrent UTIs Patient attests to multiple days of burning on urination on reexamination today UA shows WBC 7, nitrate negative, leukoesterase positive, rare bacteria. Urine culture appears to be negative #Hx of MDD (?) Per patient's medication record it appears the patient takes escitalopram at home. Last prescription refill the 09/29/23 Patient denies taking any medication at home Diet: Regular diet GI: pt is on regular diet DVT: SCDs, JC score 0 no chemoprophylaxis needed Reed: None Lines: Peripheral Dispo: Med-Tele Code: Full Patient's care was discussed with my attending physician Dr. Perry and senior residents on service Davonte Miller D.O. PGY1 Anesthesiology Attending Provider Attestation/Addendum I attest that I was physically present for the evaluation, physical examination, lab and imaging review of the patient with the residents. I discussed the case with the residents and agree with the findings and plans of care as documented above. At bedside today, patient continues to complain of anxiety.? Still having CIWA score around 2-5.? Vitals also show mild tachycardia.? Abdominal pain is well- controlled with analgesics.? Denies any nausea or vomiting.? Has been able to tolerate diet well.? We will add gabapentin 300 mg at bedtime.? She has been able to have good fluid intake orally.? We will continue to monitor closely for withdrawal symptoms, pulse rate. ?We will plan for discharge if patient continues to tolerate diet, does not show any withdrawal symptoms and has her heart rate under control. Melissa Perry MD
--- NOTE | 2024-03-09 17:40 | PC.NURSE ---
Pt temperature 101.6 at 17:35. Informed Dr. Hoskins. New orders given tylenol for fever.
[2024-03-09] MEDS: KETOROLAC INJ 30 MG/ML VIAL IVP (17:52)
[2024-03-09] MEDS: ACETAMINOPHEN 325 MG TABLET 650 MG PO (17:53)
[2024-03-09] MEDS: GABAPENTIN 300 MG CAPSULE PO (20:14)
[2024-03-10] VITALS (10 sets, daily range): BP systolic 127–154; BP diastolic 78–99; PULSE 98–136; RESP 16–19; TEMP 36.2–37.9; O2SAT 92–97; BMI 22.7
[2024-03-10] MEDS: LORazepam 0.5 MG TABLET PO ×3 (04:20→13:00)
[2024-03-10 05:14] LABS: Basophils % (Auto) 0 % (0-2.5); Eosinophils # (Auto) 0.1 Thou/mm3 (0.0-0.5); Eosinophils % (Auto) 1 % (0-10); Hematocrit 37.6 % (36.0-46.0); Hemoglobin 12.7 g/dL (12.0-16.0); Immature Granulocytes % (Auto) 1 % (0-0); Immature Granulocytes Auto 0.07 Thou/mm3 (0.00-0.00); Lymphocytes % (Auto) 10 % (10-50); Mean Corpuscular HGB Conc 33.8 g/dl (31.0-37.0); Mean Corpuscular Hemoglobin 35.9 pg (25.0-35.0); Mean Corpuscular Volume 106 fL (80-100); Monocytes # (Auto) 1.7 Thou/mm3 (0.0-0.8); Monocytes % (Auto) 17 % (0-12); Neutrophils # (Auto) 7.3 Thou/mm3 (1.8-7.7); Neutrophils % (Auto) 72 % (37-80); Nucleated Red Blood Cell % 0 /100 WBC (0); Platelet Count 220 Thou/mm3 (140-440); RDW Standard Deviation 51.1 fL (36.4-46.3); Red Blood Count 3.54 Miln/mm3 (4.00-5.20); White Blood Count 10.2 Thou/mm3 (3.6-11.0)
[2024-03-10 06:56] LABS: Alanine Aminotransferase 26 U/L (10-49); Albumin, Serum 3.1 gm/dL (3.5-5.0); Albumin/Globulin Ratio 1.1 (1.2-2.2); Alkaline Phosphatase 143 U/L (46-116); Anion Gap 10 (7-16); Aspartate Amino Transferase 58 U/L (0-34); BUN/Creatinine Ratio 12 Ratio (12-20); Bilirubin,Total 1.6 mg/dL (0.3-1.2); Blood Urea Nitrogen 6 mg/dL (9-23); Calcium 8.4 mg/dL (8.3-10.6); Calcium (Corrected) 9.1 mg/dL (8.5-10.1); Carbon Dioxide 24.1 mMol/L (20.0-31.0); Chloride 104 mMol/L (98-107); Creatinine (Component) 0.5 mg/dL (0.6-1.3); Estimated Creatinine Clearance 176.5 mL/min (>60); Globulin 2.8 gm/dL (2.3-3.5); Glucose 61 mg/dL (74-106); Magnesium 1.9 mg/dL (1.6-2.6); Osmolality,Calculated 271 (275-295); Phosphorous 3.6 mg/dL (2.4-5.1); Potassium 3.7 mMol/L (3.4-5.1); Sodium 138 mMol/L (136-145); Total Protein 5.9 gm/dL (5.7-8.2); eGFR > 60 See Note
[2024-03-10] MEDS: LACTOBACILLUS RHAMNOSUS 1 CAP PO ×2 (08:07→21:57)
[2024-03-10] MEDS: HYDROcodone/APAP 5/325 TABLET 1 TAB PO (08:07)
[2024-03-10] MEDS: cefTRIAXone/D5w 1gm IV premix 50 ML IV (08:07)
[2024-03-10] MEDS: NAPH,KPH MBDB 1 PACKET (1.5 GM) PO ×2 (08:07→21:56)
[2024-03-10] MEDS: FOLIC ACID 1 MG TABLET PO (08:07)
[2024-03-10] MEDS: THIAMINE 100 MG TABLET PO (08:07)
[2024-03-10] MEDS: METOPROLOL TARTRATE 25 MG TABLET PO (08:08)
--- NOTE | 2024-03-10 09:46 | PC.SS ---
SS follow up note; CDIFF test pending. Heart rate has been elevated. Possible discharge tomorrow.
[2024-03-10 09:49] LABS: C-Reactive Protein 24.9 mg/dL (0.0-0.9); Lipase 126 U/L (12-53)
[2024-03-10] MEDS: KETOROLAC INJ 30 MG/ML VIAL IVP (13:01)
[2024-03-10] MEDS: hydrOXYzine HCL 25 MG TABLET PO ×2 (13:04→22:31)
[2024-03-10] MEDS: PROPRANOLOL 10 MG TABLET PO ×2 (15:23→21:56)
--- NOTE | 2024-03-10 15:27 | ESPR_ITS ---
<Statement entered by Mirza Lopez MD - 03/10/24 16:48> Patient was seen and examined at the bedside. Patient CIWA was 2. Patient denied any nausea or vomiting and is tolerating her food. She does have mild abdominal discomfort. She complains of anxiety and palpitations. Denies any chest pain. The patient is out of window for alcohol withdrawal she continues to remain anxious. We plan to DC CIWA protocol and started on propranolol 10 mg 3 times daily and hydroxyzine for anxiety. Will likely evaluate her tomorrow morning and anticipating discharge tomorrow. C. difficile was canceled patient had regular bowel movement. Lactic acid was negative. Blood pressure remained stable. Labs were unremarkable. All labs and orders were reviewed. I saw and examined the patient, and I agree with current management stated by Dr Davonte DO, PGY-1 Plan of care was discussed with the attending physician and resident physician. Disclaimer: Despite multiple revisions, due to the dictation software being used, the document bellow may not be free of grammatical errors including phonetic/typographic errors. However, this does not deter from our commitment to providing health care in the patient's best interest in mind. Dr. John MD, PGY 2 Documentation for date of: 03/10/24 Subjective Subjective Interval history: 03/06: No acute events overnight. Vital signs notable for tachycardia with heart rates in 120s to 130s. EKG shows sinus tachycardia BP stable at 130/90, respiratory rate 20, afebrile. CBC normal. CMP notable for potassium of 5.2. AST this a.m. 126 from 316, ALT 54 from 112. Patient states that she subjectively feels better, slightly gets lightheaded and feels palpitations walking to the restroom. But overall better. CIWA score of 8 in this a.m. Tolerated clear liquids, proceeding with pur?ed for lunch. Fluid balance +4 L, however unmeasured voids not accounted for. Patient does attest to several days of burning urination, has a history of recurrent UTIs. Urinalysis shows WBC 7, nitrite negative, leukoesterase positive. Treating with Rocephin 1 g daily. Will continue to follow throughout the day. 03/07: No overnight events. Patient seen and examined at bedside. Patient reports feeling well, complains of mild abdominal pain improved from before. Notes diarrhea. Denies chest pain, shortness of breath, nausea or vomiting. Patient received Ativan throughout the night due to elevated CIWA score. Continue IV fluids, allow diet as tolerated, continue CIWA protocol. 03/08: Overnight rapid response called for desaturation event to 70s. Checks x- ray shows possible pneumonia left base vascular congestion. EKG sinus tachycardia, BNP obtained resulted 70. Lasix, steroids given, fluids stopped. In a.m. exam patient saturating 98 % on room air, states her shortness of breath is much better. Still test to mild epigastric pain, but states that it is improving. Patient states that her diarrhea is improving, and that her stool is becoming more solid. C. difficile sent, lipase 200s, lactic acid 1.0. CIWA 5 this a.m. 03/09: No acute events overnight. Vital signs this a.m. stable except for persistent tachycardia at 110s. CBC normal, electrolytes normal, AST ALT 33 and 28 respectively. Patient states that her abdominal pain is getting better, CIWA this a.m. 2, at lunchtime 5. Patient is slowly tolerating regular diet patient states that her stool is soft, not diarrhea anymore. No more burning on urination. Adding gabapentin. Possible discharge tomorrow. 03/10: No acute events overnight. Tachycardia is persistent, 128 heart rate this a.m. Patient slightly hypertensive 148/99. CBC stable, CMP stable. Patient states that her pain is better controlled, however attests to high anxiety. CIWA this morning 2-anxiety. Patient is tolerating regular diet, stools normal at this point. No more burning urination. Discontinuing metoprolol, initiating metoprolol, hydroxyzine, discontinue CIWA protocol. Will continue to trend. Will discharge tomorrow likely. Exam Vital Signs Temp Pulse Resp BP Pulse Ox O2 Del Method O2 Flow Rate 98.5 F 113 H 16 140/93 H 97 Room Air 3 03/10/24 12:00 03/10/24 15:23 03/10/24 12:00 03/10/24 15:23 03/10/24 12:00 03/10/24 12:00 03/10/24 04:00 Narrative Exam PE: Gen: Well-developed and well-nourished. HEENT: NCAT, PERRLA, EOMI, MMM, anicteric conjunctivae. CVS: normal S1 and S2. RRR. No M/R/G. Resp: CTA B/L. No rhonchi, rales, crackles or wheezing. Abd: Minimal diffuse abdominal tenderness MSK: Good ROM in BUE & BLE. No edema or rash. Neuro: CN II-XII grossly intact. Strength 5/5 in BUE & BLE. Alert and oriented x3. Psych: appropriate mood and affect. Objective Labs 03/10/24 04:20 03/10/24 04:20 Labs: Laboratory Results - last 24 hr 03/10/24 04:20 WBC 10.2 RBC 3.54 L Hgb 12.7 Hct 37.6 MCV 106 H MCH 35.9 H MCHC 33.8 RDW Std Deviation 51.1 H Plt Count 220 D Neut % (Auto) 72 Lymph % (Auto) 10 [place] % (Auto) 17 H Eos % (Auto) 1 Baso % (Auto) 0 Neut # (Auto) 7.3 Lymph # (Auto) 1.0 [place] # (Auto) 1.7 H Eos # (Auto) 0.1 Baso # (Auto) 0.0 Immature Gran # (Auto) 0.07 H Absolute Nucleated RBC 0.00 Immature Gran % 1 H Nucleated RBC % 0 Sodium 138 Potassium 3.7 Chloride 104 Carbon Dioxide 24.1 Anion Gap 10 BUN 6 L Creatinine 0.5 L Estim Creat Clear Calc 176.5 eGFR > 60 BUN/Creatinine Ratio 12 Glucose 61 L Calculated Osmolality 271 L Calcium 8.4 Corrected Calcium 9.1 Phosphorus 3.6 Magnesium 1.9 Total Bilirubin 1.6 H AST 58 H ALT 26 Alkaline Phosphatase 143 H D C-Reactive Prot, Quant 24.9 H Total Protein 5.9 Albumin 3.1 L Globulin 2.8 Albumin/Globulin Ratio 1.1 L Lipase 126 H D Quality Measures Quality Measures none Assessment & Plan Assessment Current Active Medications: Generic Name Dose Route Start Last Admin Trade Name Freq PRN Reason Stop Dose Admin Acetaminophen 650 mg 03/09/24 17:39 03/09/24 17:53 Acetaminophen 325 Mg Tablet PO 04/04/24 13:55 650 mg Q4HR PRN Administration Pain Scale 1-3 (Mild) or Fever Dextrose 25 ml 03/10/24 11:20 Dextrose 50%-Water Inj 50 Ml Syringe IV 04/09/24 11:19 Q15MIN PRN BG 50-70 responsive npo pt Dextrose 50 ml 03/10/24 11:20 Dextrose 50%-Water Inj 50 Ml Syringe IV 04/09/24 11:19 Q15MIN PRN BG <50 OR BG <70 & pt unresponsive Folic Acid 1 mg 03/06/24 09:00 03/10/24 08:07 Folic Acid 1 Mg Tablet PO 04/05/24 08:59 1 mg QDAY LINDSAY Administration Gabapentin 300 mg 03/09/24 21:00 03/09/24 20:14 Gabapentin 300 Mg Capsule PO 04/08/24 20:59 300 mg HS LINDSAY Administration Glucagon 1 mg 03/10/24 11:20 Glucagon Inj 1 Mg Vial IM Q15MIN PRN BG <70, and no IV access Hydroxyzine HCl 25 mg 03/10/24 11:30 03/10/24 13:04 Hydroxyzine Hcl 25 Mg Tablet PO 04/09/24 11:29 25 mg BID LINDSAY Administration Lactobacillus Rhamnosus 1 cap 03/08/24 09:00 03/10/24 08:07 Lactobacillus Rhamnosus 1 Cap PO 04/07/24 08:59 1 cap BID LINDSAY Administration Lorazepam 0.5 mg 03/06/24 08:00 03/10/24 13:00 Lorazepam 0.5 Mg Tablet PO 03/11/24 07:59 0.5 mg Q2HR PRN Administration Ciwa-Ar Score 2-6 Lorazepam 1 mg 03/06/24 08:00 03/07/24 21:23 Lorazepam 0.5 Mg Tablet PO 03/11/24 07:59 1 mg Q2HR PRN Administration Ciwa-Ar score 7-11 Lorazepam 2 mg 03/06/24 07:46 Lorazepam 2 Mg/Ml Vial IV 03/11/24 07:45 Q2HR PRN CIWA SCORE 20-25 Lorazepam 2 mg 03/06/24 08:00 03/07/24 18:05 Lorazepam 0.5 Mg Tablet PO 03/11/24 07:59 2 mg Q2HR PRN Administration Ciwa-Ar Score 12-15 Lorazepam 1 mg 03/06/24 11:02 Lorazepam 2 Mg/Ml Vial IV 03/11/24 07:45 Q2HR PRN CIWA SCORE 16-19 Potassium Phos/Sodium Phos 1 packet 03/06/24 21:00 03/10/24 08:07 [facility] 1 Packet (1.5 Gm) PO 04/05/24 20:59 1 packet BID LINDSAY Administration Propranolol HCl 10 mg 03/10/24 14:00 03/10/24 15:23 Propranolol 10 Mg Tablet PO 04/09/24 13:59 10 mg TID LINDSAY Administration Thiamine HCl 100 mg 03/06/24 09:00 03/10/24 08:07 Thiamine 100 Mg Tablet PO 04/05/24 08:59 100 mg QDAY LINDSAY Administration Plan Estrella Cabrera is a 23-year-old female with no past medical history who presents for nausea/vomiting, abdominal pain. Patient admitted for treatment of acute pancreatitis. #Persistent sinus tachycardia #Anxiety Patient has persistently been tachycardic in 110s-120s since admission. Adequate pain control in place as per patient. Heart rate improved with metoprolol Patient has a history of anxiety, previously on SSRI but has not been taking for months - Stopping CIWA protocol -Discontinuing metoprolol -Propranolol 10 mg p.o. 3 times daily -Hydroxyzine 25 mg twice daily -Gabapentin 300 mg nightly -Acetaminophen, [place], Toradol for pain. #Alcohol use disorder Patient attests to drinking 1 pint of vodka every day for the last 1.5 years AST 316, ALT 112 AST and ALT down trended to 126, 54 this a.m. 03/06: CIWA in AM 8 03/08: CIWA in AM 5 03/09: CIWA 2, 5 respectively 03/10: CIWA 2 -Discontinue CIWA protocol - Folic acid 1 mg daily - Thiamine 100 mg daily - Will continue to reassess, monitor labs - Contacting resources for cessation resources upon discharge - [id number] Mg p.o. at bedtime x 1 # Acute pancreatitis secondary to alcohol use- appears resolved Patient has a history of chronic alcohol use, 1 pint of vodka for the last 1.5 years. Patient has had several bouts of nausea vomiting, abdominal pain prior to admission. AST 316, ALT 112 on initial presentation Lipase 2433. CT abdomen pelvis shows severe pancreatitis present with edema surrounding the pancreas and free fluid extending into the abdomen. No pseudocyst noted [place]'s Criteria: 0 = 1% predicted mortality 03/08: Fluids stopped due to suspicion for fluid overload. Patient is on regular diet, will continue to trend fluid status - Acetaminophen, [place], Toradol for pain. - Zofran for nausea - We will continue to monitor labs, symptoms - Repleting electrolytes as necessary #Pulmonary Vascular Congestion- appears to be improving #Possible Left lower lobe pneumonia Rapid response called overnight 03/07 to 03/08 for desaturations to the 70s. Chest x-ray shows possible pneumonia left base with pulmonary vascular congestion. Lasix 6 given, fluids stopped In a.m. on 03/08 patient states that her shortness of breath is much better. Patient is saturating 98 % on room air. Patient appears to be 14 L over, but unmeasured voids are not accounted for and patient states she has been voiding quite frequently Chest x-ray shows pneumonia left base, pulmonary vascular congestion Lasix given, BNP resulted 70, EKG shows sinus tachycardia Patient has been on Rocephin 1 g for suspected UTI which has resulted negative blood culture. - Fluids stopped, patient has a regular diet now , will continuously reassess fluid status - Rocephin 1g Qday 03/06-03/10 # Elevated transaminases with elevated T. bili- improving T. bili 2.1, AST 316, ALT 112 AST and ALT normalized this a.m. -Likely related to alcohol intake -Ultrasound liver was negative for stones in the gallbladder or CBD dilation -Continue [facility] protocol -Counseled on alcohol abstinence -Trend LFTs and avoiding hepatotoxic agents #Urinary Tract Infection- appears resolved Patient has a history of recurrent UTIs Patient attests to multiple days of burning on urination on reexamination today UA shows WBC 7, nitrate negative, leukoesterase positive, rare bacteria. Urine culture appears to be negative #Hx of MDD (?) Per patient's medication record it appears the patient takes escitalopram at home. Last prescription refill the 09/29/23 Patient denies taking any medication at home Diet: Regular diet GI: pt is on regular diet DVT: SCDs, JC score 0 no chemoprophylaxis needed Reed: None Lines: Peripheral Dispo: Med-Tele Code: Full Patient's care was discussed with my attending physician Dr. Perry and senior residents on service Davonte Miller D.O. PGY1 Anesthesiology Attending Provider Attestation/Addendum I attest that I was physically present for the evaluation, physical examination, lab and imaging review of the patient with the residents. I discussed the case with the residents and agree with the findings and plans of care as documented above. At bedside today, patient continues to complain of anxiety.? Still having CIWA score around 2.? Continue to show tachycardia. Lipase level noted to be downtrending. While questioning further, patient admitted to have been taking hydroxyzine and SSRI for anxiety before. Given patient has already completed 5 days on CIWA protocol, we will discontinue Ativan as per CIWA protocol. We will add hydroxyzine, replace metoprolol with propranolol and add gabapentin at bedtime. Abdominal pain is well-controlled with analgesics.? Denies any nausea or vomiting.? Has been able to tolerate diet well.? We will continue to monitor heart rate, anxiety, abdominal pain. Melissa Perry MD
--- NOTE | 2024-03-10 16:42 | ESDS_ITS ---
<Statement entered by Mirza Lopez MD - 03/11/24 18:45> I saw and examined the patient, and I agree with current management stated by Dr Davonte DO PGY1. Plan of care was discussed with the attending physician and resident physician. Disclaimer: Despite multiple revisions, due to the dictation software being used, the document bellow may not be free of grammatical errors including phonetic/typographic errors. However, this does not deter from our commitment to providing health care in the patient's best interest in mind. Dr. John MD, PGY 2 Planned Discharge Date 03/11/24 DS: Providers Provider Date of admission: 03/05/24 10:07 Primary care physician: Adolfo Claire MD Admitting Provider: Melissa Perry MD Attending Provider on Admission: Richard Schulz DO Attending Provider on DC: Jazzy Schulz DO Discharging Provider: Davonte Miller DO DS: Diagnosis Problem List Completed Was Problem List Reviewed/Reconciled?: Yes Hospital Course Hospital Course Hospital course: Estrella Cabrera is a 23 F with no significant PMH who presented to the emergency department for several bouts of nausea/vomiting as well as abdominal pain. Father is with patient at bedside. Patient states that yesterday night at around 11 PM she began having significant abdominal pain, nausea and vomiting. Patient states that the abdominal pain appears to be in the middle of her belly, and is also at her back. Patient had several bouts of nausea and vomiting with food content, no noticed red streaks or dark red emesis. Patient states that she had similar symptoms with a similar pain in lower intensity 2 weeks ago, but it spontaneously resolved. With father at bedside, patient does state that she drinks 1 pint of vodka per day for the last year/year and a half. Last drink was 8 PM on 03/04. Patient denies any recent fever, chest pain, chest pressure, changes in vision hearing, sensorineural changes, changes in urinary symptoms or bowel movements. On presentation in the emergency department, blood pressure was 115/84, pulse 107, respirations 16, afebrile at 97.7, saturating 100% on room air. CBC relatively normal, MCV elevated at 107. Electrolytes relatively normal, with glucose elevated 130. AST elevated 316, ALT elevated at 112. Alk Phos 177. Troponin negative. Lipase significantly elevated at 2433. In the emergency department patient was given. Morphine for pain, Zofran for nausea. Abdominal ultrasound shows normal gallbladder, normal CBD. Fatty liver. CT of abdomen pelvis shows hepatomegaly with 16.5 cm with severe diffuse fatty infiltration throughout liver. Severe pancreatitis present with edema surrounding the pancreas free fluid extending into the abdomen. No pseudocysts. On physical exam patient appears to be a chronically sick female. Patient is alert and oriented x 4. Cranial nerves II to XII intact, no sensorineural changes noted on exam. Abdomen is soft, mildly distended, tender to mild palpation. No fluid shift noted. No peritoneal signs present. Patient admitted for management of acute pancreatitis likely secondary to alcohol use. Over the course of patient's hospital stay patient was adequately treated with fluid resuscitation and pain control. Patient has suspected UTI which was treated with antibiotics. Patient was then treated for alcohol withdrawal and continue to have persistent symptoms. The symptoms appear to be resolved upon discharge. At time discharge patient is stable, and can tolerate regular diet. Patient advised to follow-up with primary care provider in 7 days upon discharge. Patient advised to return to emergency department if symptoms worsen or persist. Patient advised to follow-up with a addiction center for resources on treating her alcohol addiction. Patient and family are amenable to discharge Status at Discharge Cognitive/behavioral status at discharge: Stable discharge Time Spent with Patient Time attestation: Total time spent providing and/or coordinating discharge services: Exam Vital Signs Temp Pulse Resp BP Pulse Ox O2 Del Method O2 Flow Rate 98.4 F 113 H 16 140/93 H 95 Room Air 3 03/10/24 16:03/10/24 16:03/10/24 16:03/10/24 16:03/10/24 16:03/10/24 16:03/10/24 04:00 Narrative Exam PE: Gen: Well-developed and well-nourished. HEENT: NCAT, PERRLA, EOMI, MMM, anicteric conjunctivae. CVS: normal S1 and S2. RRR. No M/R/G. Resp: CTA B/L. No rhonchi, rales, crackles or wheezing. Abd: Minimal diffuse abdominal tenderness MSK: Good ROM in BUE & BLE. No edema or rash. Neuro: CN II-XII grossly intact. Strength 5/5 in BUE & BLE. Alert and oriented x3. Psych: appropriate mood and affect. Discharge Plan Plan Patient Disposition: HOME (Self Care) Care Plan Goals: Please follow-up with your primary care provider within 7 days of discharge If you do not have a primary care provider you can follow-up with the [facility] at [address] [place] [id number] Please upon discharge establish care with an addiction facility If you do not have resources please contact our social media strategist where they can provide you with resources It is imperative that you establish proper care and form healthy lifestyle habits to prevent this from recurring Please return to the emergency department if your symptoms worsen or persist Prescriptions/Referrals Prescriptions/Med Rec: New gabapentin 300 mg Capsule 300 mg PO HS 30 Days Qty: 30 0RF folic acid 1 mg Tablet 1 mg PO QDAY 30 Days Qty: 30 0RF hydroxyzine HCl 25 mg Tablet 25 mg PO BID PRN (Reason: anxiety) 30 Days Qty: 60 0RF propranolol 10 mg Tablet 10 mg PO TID 30 Days Qty: 90 0RF thiamine mononitrate (vit B1) 100 mg Tablet 100 mg PO QDAY 30 Days Qty: 30 0RF Discontinued ciprofloxacin HCl [Cipro] 500 mg tablet 500 mg PO BID Qty: 14 0RF Referrals: Adolfo Claire MD [Primary Care Provider] - Patient/Caregiver Discharge Instructions Other Discharge Activity Instructions:: Please follow-up with your primary care provider within 7 days of discharge If you do not have a primary care provider you can follow-up with the [facility] at [address] [place] [id number] Please upon discharge establish care with an addiction facility If you do not have resources please contact our social media strategist where they can provide you with resources It is imperative that you establish proper care and form healthy lifestyle habits to prevent this from recurring Please return to the emergency department if your symptoms worsen or persist Education Materials: Dealing With the Stress of ..., Alcoholism Resources, Alcoholism: Getting Help, Alcohol Addiction, Addiction: Getting Help Print Language: Cymraes Stand Alone Forms: [facility] Award Info., Patient Portal Info Letter Discharge Order Discharge Orders: Discharge (Routine); Ordered 03/11/24 Ordered By: Cristhian Barbosa Quality Discharge Quality Measures VTE prophylaxis Attestestation Attestation I have discussed and was present for the essential components of the discharge history, physical examination, diagnosis, and discharge treatment plan with the resident. I agree with the patient's discharge care as documented by the resident and amended herein by me. Gordy Schulz DO. The patient understood all discharge instructions, all questions were answered satisfactorily. The patient was instructed to return to the Emergency Department is symptoms worsened or persisted. Patient tolerating p.o. intake, afebrile, ambulatory and stable at time of discharge. The medicine team extensively discussed the necessity for alcohol cessation, the patient understood, all questions answered. Although this document has been carefully reviewed, there may still be some phonetic and other typographical errors. These errors are purely grammatical due to imperfections in the software program and should not be construed in any way to compromise the substance of the patient's medical care during this visit.
[2024-03-10] MEDS: GABAPENTIN 300 MG CAPSULE PO (21:57)
[2024-03-10] MEDS: ACETAMINOPHEN 325 MG TABLET 650 MG PO (22:11)
[2024-03-11] VITALS: PULSE 112
[2024-03-11 04:00] VITALS: BP 131/76; PULSE 96; RESP 18; TEMP 36.5; O2SAT 100
[2024-03-11 05:58] LABS: Basophils # (Auto) 0.1 Thou/mm3 (0.0-0.2); Basophils % (Auto) 1 % (0-2.5); Eosinophils # (Auto) 0.1 Thou/mm3 (0.0-0.5); Eosinophils % (Auto) 1 % (0-10); Hematocrit 34.5 % (36.0-46.0); Hemoglobin 11.6 g/dL (12.0-16.0); Immature Granulocytes % (Auto) 1 % (0-0); Immature Granulocytes Auto 0.13 Thou/mm3 (0.00-0.00); Lymphocytes # (Auto) 0.9 Thou/mm3 (1.0-4.8); Lymphocytes % (Auto) 10 % (10-50); Mean Corpuscular HGB Conc 33.6 g/dl (31.0-37.0); Mean Corpuscular Hemoglobin 35.3 pg (25.0-35.0); Mean Corpuscular Volume 105 fL (80-100); Monocytes # (Auto) 1.7 Thou/mm3 (0.0-0.8); Monocytes % (Auto) 18 % (0-12); Neutrophils # (Auto) 6.6 Thou/mm3 (1.8-7.7); Neutrophils % (Auto) 70 % (37-80); Nucleated Red Blood Cell % 0 /100 WBC (0); Platelet Count 237 Thou/mm3 (140-440); RDW Standard Deviation 49.1 fL (36.4-46.3); Red Blood Count 3.29 Miln/mm3 (4.00-5.20); White Blood Count 9.4 Thou/mm3 (3.6-11.0)
[2024-03-11 06:05] VITALS: BP 131/76; PULSE 96
[2024-03-11] MEDS: PROPRANOLOL 10 MG TABLET PO (06:05)
[2024-03-11] MEDS: ACETAMINOPHEN 325 MG TABLET 650 MG PO (06:13)
[2024-03-11 06:29] LABS: Alanine Aminotransferase 16 U/L (10-49); Albumin/Globulin Ratio 1.3 (1.2-2.2); Alkaline Phosphatase 130 U/L (46-116); Anion Gap 8 (7-16); Aspartate Amino Transferase 38 U/L (0-34); BUN/Creatinine Ratio 13 Ratio (12-20); Bilirubin,Total 1.4 mg/dL (0.3-1.2); Blood Urea Nitrogen < 5 mg/dL (9-23); Calcium 8.2 mg/dL (8.3-10.6); Carbon Dioxide 27.4 mMol/L (20.0-31.0); Chloride 104 mMol/L (98-107); Creatinine (Component) 0.4 mg/dL (0.6-1.3); Estimated Creatinine Clearance 220.7 mL/min (>60); Globulin 2.4 gm/dL (2.3-3.5); Glucose 83 mg/dL (74-106); Magnesium 1.9 mg/dL (1.6-2.6); Osmolality,Calculated 273 (275-295); Phosphorous 4.7 mg/dL (2.4-5.1); Potassium 3.9 mMol/L (3.4-5.1); Sodium 139 mMol/L (136-145); Total Protein 5.4 gm/dL (5.7-8.2); eGFR > 60 See Note
[2024-03-11 08:00] VITALS: BP 128/79; PULSE 94; PULSE 96; RESP 16; TEMP 36.3; O2SAT 95
--- NOTE | 2024-03-11 08:06 | PC.NURSE ---
per day shift nurse report, pt have a vape in the room. C Architect got in the room to ask pt if she was vaping or had a vape with her, pt did not accept not denied having/using it in the room. Day shift nurse notified during report this morning/charge nurse was made aware.
[2024-03-11] MEDS: THIAMINE 100 MG TABLET PO (08:44)
[2024-03-11] MEDS: NAPH,KPH MBDB 1 PACKET (1.5 GM) PO (08:44)
[2024-03-11] MEDS: LACTOBACILLUS RHAMNOSUS 1 CAP PO (08:44)
[2024-03-11] MEDS: FOLIC ACID 1 MG TABLET PO (08:44)
[2024-03-11] MEDS: hydrOXYzine HCL 25 MG TABLET PO (08:44)
[2024-03-11] MEDS: Magnesium Sulfate 1 gm Ivpb 1 GM/100 ML BAG IV (10:33)
[2024-03-11 11:56] VITALS: BP 124/82; PULSE 94; RESP 17; TEMP 37; O2SAT 97
[2024-03-11 12:00] VITALS: PULSE 96
== END 2024-03-11 12:42 | disposition home or self-care (01) | DRG 282 ==
LOC: SERX 08:05 → SERHOLD 10:20 → S3SX 16:58
PROVIDERS: Physician Assistant; Student in an Organized Health Care Education/Training Program; Admitting Provider Student in an Organized Health Care Education/Training Program; Emergency Provider Emergency Medicine; PCP Internal Medicine; Visit Provider Student in an Organized Health Care Education/Training Program
DX: K85.20 Alcohol induced acute pancreatitis without necrosis or infection (principal); F12.90 Cannabis use, unspecified, uncomplicated; Y90.5 Blood alcohol level of 100-119 mg/100 ml; K76.0 Fatty (change of) liver, not elsewhere classified; R09.02 Hypoxemia; E87.70 Fluid overload, unspecified; N39.0 Urinary tract infection, site not specified; J18.9 Pneumonia, unspecified organism; F10.239 Alcohol dependence with withdrawal, unspecified; F41.9 Anxiety disorder, unspecified
CPT/HCPCS: 36415; 71045; 74177; 76705; 80053; 80061; 80069; 80307; 80320; 81001; 83036; 83605; 83690; 83735; 83880; 84100; 84439; 84443; 84484; 84703; 85025; 86140; 87086; 87493; 93005; 93225; 94640; 94664; 96361; 96365; 96366; 96375; 99285; A4649; J0696; J1720; J1885; J1940; J2060; J2270; J2405; J3411; J3475; J3490; J7030; J7040; J7999; Q0162; Q9967; A9270; G0480